=== PATIENT | male | born 1955 | race Caucasian/White ===

== ENCOUNTER 2016-09-03 05:06 | Inpatient (IN) | payer BC, OTHER ==
[2016-08-11 08:29] VITALS: BMI 29.0
--- NOTE | 2016-08-11 08:51 | PAT Medication Instructions ---
Service Date Aug 11, 2016. Current Home Medication List Aspirin (Aspirin 81), 81 MG PO QAM Metoprolol Tartrate (Lopressor) (Lopressor), 12.5 MG PO BID Naproxen (Aleve), 220 MG PO BID PRN for Pain Simvastatin (Zocor), 40 MG PO QPM Medication Instructions For Your Scheduled Surgery - Hold the following medications 10 days prior to surgery per surgeon's instructions: Naproxen (Aleve), 220 MG PO BID PRN for Pain - Take the following medications the morning of surgery with a sip of water OTHERWISE NOTHING TO EAT OR DRINK AFTER MIDNIGHT: Metoprolol Tartrate (Lopressor) (Lopressor), 12.5 MG PO BID Aspirin (Aspirin 81), 81 MG PO QAM - Take the following medications as scheduled the night before surgery: Simvastatin (Zocor), 40 MG PO QPM Metoprolol Tartrate (Lopressor) (Lopressor), 12.5 MG PO BID If you have any questions please call us at [phone] or [phone] or [phone]
--- NOTE | 2016-08-11 09:40 | DIAGNOSTIC IMAGING REPORT ---
CHEST PREADMISSION(PA/LAT) CLINICAL HISTORY: Preoperative evaluation. COMPARISON STUDY: Chest radiograph February 03, 2008. FINDINGS: Lung volumes are normal. No consolidation is identified to suggest pneumonia. There is no pneumothorax or pleural effusion. Mild interstitial thickening is unchanged. Mild to moderate cardiomegaly is unchanged. There is no evidence of pulmonary edema. IMPRESSION: 1. No acute cardiopulmonary findings. 2. Mild to moderate cardiomegaly. No evidence of pulmonary edema. Electronically signed by: Erorl Lebron M.D. 08/11/2016 9:39 AM Dictated Date/Time: 08/11/2016 9:38 AM
[2016-08-11 09:55] LABS: BASO % 0.5 %; BASO ABS # 0.03 K/uL (0-0.2); COMPLETE YES; EOS % 1.6 %; HEMATOCRIT 48.8 % (42-52); IG% 0.2 %; LYMPH % 28.2 %; LYMPH ABS # 1.59 K/uL (1.2-3.4); MEAN CELL VOLUME 97.6 fL (80-100); MEAN CORPUSCULAR HEMOGLOBIN 32.8 pg (25-34); MEAN CORPUSCULAR HGB CONC 33.6 g/dl (32-36); MEAN PLATELET VOLUME 10.2 fL (7.4-10.4); MONO % 9.9 %; NEUT % 59.6 %; PLATELET COUNT 255 K/uL (130-400); WHITE BLOOD COUNT 5.64 K/uL (4.8-10.8)
[2016-08-11 09:57] LABS: BUN/CREATININE RATIO 14.9 (10-20); CALCIUM 9.5 mg/dl (8.5-10.1); CREATININE 0.92 mg/dl (0.60-1.40); POTASSIUM 5.1 mmol/L (3.5-5.1)
[2016-08-11 10:10] LABS: PARTIAL THROMBOPLASTIN RATIO 0.9; PROTHROMBIN TIME (PATIENT) 10.2 SECONDS (9.0-12.0)
--- NOTE | 2016-08-29 18:58 | HISTORY & PHYSICAL EXAMINATION ---
DATE OF ADMISSION: 09/03/2016 CHIEF COMPLAINT: Left knee pain. HISTORY OF PRESENT ILLNESS: A 61-year-old gentleman who presents for surgical treatment of his left knee. He has had on and off knee pain for several years, it has gotten worse over the past 6 months. He describes pain mostly medial in his knee. It is increased with weightbearing. The more he stands the more it hurts. He was at [place] several months ago and had difficulty walking and was significantly debilitated by his pain. He does have a history of knee arthroscopy in this knee in the past, it was done about 30 years ago. He has also been treated with prednisone as well as Aleve which provides some temporary symptom relief, but not adequate. He would like to have his left knee replaced. PAST MEDICAL HISTORY: 1. Coronary artery disease, status post angioplasty at [facility] in [address] Jara. 2. Elevated cholesterol. PAST SURGICAL HISTORY: Include 1. Left knee arthroscopy 30 years ago. 2. Angioplasty in 1998 at [facility]. 3. Colonoscopy. ALLERGIES: None. CURRENT MEDICINES: Include: 1. Metoprolol half a pill twice a day. 2. Zocor 40 mg 3. Various anti-inflammatories intermittently. SOCIAL HISTORY: He is a 61-year-old male. He is , but and lives alone. Two children. He is from [place]. No tobacco or drug use. FAMILY HISTORY: Significant for heart disease, diabetes, breast cancer. REVIEW OF SYSTEMS: Negative for diabetes. Denies any current chest pain or shortness of breath. Does have a history of cardiac stent placed but no symptoms currently. He is followed by Dr. Jara. No bleeding problems. PHYSICAL EXAMINATION: GENERAL: Shows a fairly tall, pleasant, middle-aged male. He looks to be in pretty good health. HEENT: Benign. NECK: Supple. No lymphadenopathy. LUNGS: Clear to auscultation. HEART: Has a regular rate and rhythm. ABDOMEN: Soft, nontender, nondistended. EXTREMITIES: Grossly neurovascularly intact except as follows: Examination of the left lower extremity reveals the patient walks with a bit of a limp. He has got varus alignment to his knee. Little bit of a varus thrust with weightbearing. He has got bony hypertrophy medially. Range of motion is 5 to about 125. No instability. No pain on motion. X-RAYS: X-rays of the left knee were reviewed. It shows advanced medial compartment DJD. He has got complete loss of his medial joint space. He has got some chondrocalcinosis. He has got some patellofemoral disease as well. ASSESSMENT: A 61-year-old male with left knee advanced medial and patellofemoral compartment degenerative joint disease unresponsive to conservative treatment. He would like to have his left knee replaced. PLAN: We are going to take him to the operating room and do a left total knee replacement. The risks and benefits of this procedure were explained to the patient including but not limited to DVT, PE, , infection, neurological injury, vascular injury, bleeding problems, pain, limited range of motion, stiffness, failure to relieve his symptoms, incomplete relief of symptoms, need for further surgery in the future, fracture, persistent pain, etc. The patient understands and desires to proceed. Informed consent was obtained. We did talk to him about taking his metoprolol the morning of surgery. Dr. Jara will follow him in the hospital as needed. He is planning to be discharged home with the [facility] home health program. He does live by himself, so he might need some assistance from some family. BRETT
[~2016-09-03] VITALS: Ht 185.4 cm; Wt 101.2 kg
[2016-09-03] VITALS (11 sets, daily range): BP systolic 103–158; BP diastolic 55–88; PULSE 46–74; TEMP 36.4–36.8; O2SAT 97–100; Ht 185.4 cm; Wt 101.2 kg
[~2016-09-03 05:06] MED LIST: ASPI-435 PO; METO25TA56 PO; NAPR1TAB9 PO; SIMV40TA4 PO
[2016-09-03] MEDS ORDERED: SCOPOLAMINE 1.5 MG TDSY TD SCH (06:00)
[2016-09-03] MEDS ORDERED: BUPIVACAINE LIPOSOME 266 MG, BUPIVACAINE/EPINEPHRINE INJ 50 ML, SODIUM CHLORIDE 0.9% PF... INFIL SCH ×3 (06:00)
[2016-09-03] MEDS ORDERED: FAMOTIDINE 20 MG TAB PO SCH (06:00)
[2016-09-03] MEDS ORDERED: LACTATED RINGER'S 1000ML IV SCH (06:00)
[2016-09-03] MEDS ORDERED: METOCLOPRAMIDE HCL 10 MG TAB PO SCH (06:00)
[2016-09-03] MEDS ORDERED: LACTATED RINGER'S 1000ML 1,000 ML IV SCH (06:00)
[2016-09-03] MEDS ORDERED: GABAPENTIN 300 MG CAP PO SCH (06:00)
[2016-09-03] MEDS ORDERED: ACETAMINOPHEN 500 MG TAB PO SCH (06:00)
[2016-09-03] MEDS: TRANEXAMIC ACID INJ 1,000 MG in SODIUM CHLORIDE 0.9% 100ML 100 ML IV SCH ×2 (06:00→06:22)
[2016-09-03] MEDS ORDERED: CEFAZOLIN 2000 MG/60 ML D5W 60 ML IV SCH (06:00)
[2016-09-03] MEDS ORDERED: BUPIVACAINE/EPINEPHRINE 0.25% 1:200,000 30 ML VIAL ONE ×2 (06:21→06:49)
[2016-09-03] MEDS ORDERED: BUPIVACAINE 0.5 % 5 MG/1 ML PF 10ML VIAL ONE (06:21)
[2016-09-03] MEDS: LACTATED RINGER'S 500 ML IV SCH ×7 (06:22→15:05)
[2016-09-03] MEDS ORDERED: MIDAZOLAM HCL 1 MG/ML 2ML VIAL ONE (06:46)
[2016-09-03] MEDS ORDERED: SODIUM CHLORIDE 0.9% PF 50 ML VIAL ONE (06:49)
[2016-09-03] MEDS ORDERED: BACITRACIN 50000 UNIT VIAL ONE (06:49)
[2016-09-03] MEDS ORDERED: BUPIVACAINE LIPOSOME 1/3% 266 MG/20 ML VIAL INFIL ONE (06:49)
--- NOTE | 2016-09-03 07:00 | History & Physical Bridge Note ---
H&P Re-Evaluation Bridge Note: I have examined the patient, reviewed the History & Physical and in the interval since the performance of the History & Physical I have noted the following changes of clinical significance: No changes noted
[2016-09-03] MEDS ORDERED: PROPOFOL IV EMULSION 10 MG/ML 20 ML VIAL IV ONE (07:29)
[2016-09-03] MEDS ORDERED: LIDOCAINE HCL 2% 2 ML VIAL (20MG/ML) ONE (07:29)
[2016-09-03] MEDS ORDERED: MEPERIDINE HCL 25 MG/ML CARP IV PRN (07:45)
[2016-09-03] MEDS ORDERED: FENTANYL CITRATE INJ 50 MCG/1 ML 2 ML VIAL IV PRN (07:45)
[2016-09-03] MEDS ORDERED: FLUMAZENIL 0.1 MG/1 ML 10 ML VIAL IV PRN (07:45)
[2016-09-03] MEDS ORDERED: PHENYLEPHRINE 100MCG/ML 5ML SYR IV PRN (07:45)
[2016-09-03] MEDS ORDERED: ONDANSETRON INJ 2 MG/ML 2 ML VIAL IV PRN ×2 (07:45→09:00)
[2016-09-03] MEDS ORDERED: HYDROmorphone INJ 2 MG/ML SYR/VIAL IV PRN (07:45)
[2016-09-03] MEDS ORDERED: NALOXONE HCL 0.4 MG/1 ML VIAL/CARP IV PRN (07:45)
[2016-09-03] MEDS ORDERED: ATROPINE SULFATE 0.1 MG/ML 5ML SYR IV PRN (07:45)
[2016-09-03] MEDS ORDERED: EpHEDrine SULFATE INJ 50 MG/ML AMP IV PRN (07:45)
[2016-09-03] MEDS ORDERED: LABETALOL HCL IV 5 MG/ML 20ML IV PRN (07:45)
[2016-09-03] MEDS ORDERED: KETAMINE HCL INJ 50 MG/ML 10 ML VIAL ONE (08:16)
[2016-09-03] MEDS ORDERED: SODIUM CHLORIDE 0.9% INJ 10 ML VIAL ONE (08:19)
--- NOTE | 2016-09-03 08:49 | [facility] Post Operative Brief Note ---
Immediate Operative Summary Operative Date Sep 03, 2016. Pre-Operative Diagnosis Left Knee Degenerative Joint Disease Post-Operative Diagnosis same as pre-operative Procedure(s) Performed Left Total Knee Arthroplasty Surgeon Dr. Konstantin Fabian Hand Buffing Wheel Former Surgeon(s) Glenn Chu PA-C Estimated Blood Loss 50ml Findings Left Knee DJD Fluids (cc crystalloids) 1000 cc Specimens A: Left knee bone and tissue Drains None Anesthesia Spinal Complication(s) None Disposition Recovery Room / PACU
[2016-09-03] MEDS ORDERED: SILVER SULFADIAZINE 1% CR 50 GM JAR EXT PRN (09:00)
[2016-09-03] MEDS ORDERED: TAMSULOSIN HCL 0.4 MG CAP PO PRN (09:00)
[2016-09-03] MEDS ORDERED: MAGNESIUM HYDROXIDE SUSP 30 ML UDC PO PRN (09:00)
[2016-09-03] MEDS ORDERED: ALUMINUM/MAGNESIUM/SIMETH (MAALOX MAX) 30 ML UDC PO PRN (09:00)
[2016-09-03] MEDS ORDERED: ZOLPIDEM TARTRATE 5 MG TAB PO PRN (09:00)
[2016-09-03] MEDS ORDERED: DiphenhydrAMINE HCL 50 MG/ML VIAL IV PRN (09:00)
[2016-09-03] MEDS ORDERED: BISACODYL 10 MG SUPP PR PRN (09:00)
[2016-09-03] MEDS ORDERED: METOCLOPRAMIDE HCL INJ 5 MG/ML 2 ML VIAL IV PRN (09:00)
--- NOTE | 2016-09-03 09:22 | DIAGNOSTIC IMAGING REPORT ---
LEFT KNEE 2 VIEWS History: Left total knee arthroplasty. Degenerative arthritis. Postop. FINDINGS: The patient is status post a left total knee arthroplasty. The hardware is intact. No fracture or dislocation. Skin analia are in place. IMPRESSION: Left total knee arthroplasty. No evidence for hardware complication.. Electronically signed by: Reji Nettles M.D. 09/03/2016 9:21 AM Dictated Date/Time: 09/03/2016 9:21 AM
--- NOTE | 2016-09-03 09:41 | OPERATIVE REPORT ---
DATE OF OPERATION: 09/03/2016 PREOPERATIVE DIAGNOSIS: Left knee degenerative joint disease. POSTOPERATIVE DIAGNOSIS: Same. PROCEDURE PERFORMED: Left cemented posterior stabilized total knee arthroplasty. SURGEON: Konstantin Fabian M.D. PE TEACHER: Glenn Chu PA-C. COMPLICATIONS: None. ESTIMATED BLOOD LOSS: 50 mL. FLUID REPLACEMENT: 1000 mL crystalloid fluid replacement. ANESTHESIA: Spinal with adductor canal block. DRAINS: None. SPECIMENS: Left knee sent for pathology. OPERATIVE INDICATIONS: The patient is a 61-year-old gentleman who has had a fairly long history of left knee pain and discomfort. He describes it has gotten worse over the past 6 months. He has a history of a knee arthroscopy in the past about 30 years ago. He has been through extensive conservative treatment. He continued to have persistent and limiting pain. He elected to proceed with total knee arthroplasty. OPERATIVE FINDINGS: Operative findings revealed advanced left knee DJD. He had extensive grade 4 changes of the medial compartment as well as the patellofemoral compartment. He had some spotty grade 4 changes in the lateral compartment. He had a fixed varus deformity to his knee. Moderate joint effusion. OPERATIVE IMPLANTS: Operative implants consisted of: 1. Biomet Vanguard size 75 left posterior stabilized femoral component. 2. Biomet size 87 tibial tray. 3. A 10 mm posterior stabilized polyethylene insert. 4. A 34 x 8.5 all poly patella. OPERATIVE PROCEDURE: The patient taken to the operating room, identified and placed on the operating table in supine position. All contact areas were appropriately padded. IV antibiotics were provided by anesthesia team. A spinal anesthetic and adductor canal block had been provided in the holding area. Dey catheter was placed in sterile fashion. The left thigh tourniquet was then placed and left lower extremity was then prepped and draped in the usual sterile fashion. The left leg was elevated and exsanguinated with Esmarch and tourniquet was placed at 300 mmHg. An anterior approach to the left knee was then performed through a longitudinal incision centered over the patella. Sharp dissection was carried down through the subcutaneous tissues down to the level of the extensor mechanism. A medial parapatellar arthrotomy incision was made. Some subperiosteal dissection was carried out medially. The fat pad was resected from beneath the patellar tendon. The lateral patellofemoral ligament was released. The patella was everted and knee was flexed. The osteophytes were taken off the distal femur. The ACL and PCL were then released from the distal femur and the tibia subluxated anteriorly. The external tibial alignment jig was then placed in the anterior face of the tibia and adjusted 16 mm medially. Proximal tibial cut was made to remove about a millimeter or 2 of bone from the most deficient aspect of the medial tibial plateau. This did take a fairly large piece off laterally. The tibia was then sized to a size 87. Attention was then drawn to the femur. The distal femur was entered with a sharp drill bit. Intramedullary canal was suctioned. A left 6-degree valgus cutting guide was placed. Distal femoral cutting block was pinned in place. Distal femoral cut was made to take an additional 3 mm of bone off the distal femur. The femur was then sized to a size 75. We did downsize this slightly. The AP cutting block was pinned parallel to the epicondylar axis, which was 5 degrees of external rotation. The anterior cut, anterior chamfer, posterior cut, posterior chamfer cuts were made. Box cutting guide was placed and adjusted slightly lateral and the box cut was made. The knee was flexed. The remnants of the medial and lateral meniscus were excised. The osteophytes were taken off the posterior aspect of the femur. Trial femoral component was placed. Tibial tray was pinned in maximum external rotation and drill and stem punch were used to create defect in proximal tibia for the tibial tray. The knee was then trialed and the 10 mm insert fit most appropriately. I did trial the 12, but it was just a little bit tight, particularly in extension. Attention was then drawn to the patella. The patella was cleaned of all soft tissues. Patella thickness measured 25 mm in thickness and was cut down to 15. It was sized to a size 34 patella. Lug holes were drilled for a 34 patella. The lateral osteophyte was removed. Patella button was placed. Knee was taken through range of motion and patella tracked nicely with no thumbs test. Attention was then drawn toward placement of the permanent components. All trial components removed. Bone plug was placed in the distal femur to limit blood loss. A double batch of Palacos G cement was mixed. A left size 75 posterior stabilized femoral component, size 87 tibial tray, 10 mm posterior stabilized polyethylene insert, and a 34 x 8.5 all poly patella were then cemented in place. Knee was brought out into full extension until cement hardened. A final cement check was then performed. Pericapsular tissues were injected with a total of 100 mL of a combination of 20 mL of Exparel, 30 mL of normal saline, 50 mL of 0.25% Marcaine with epinephrine. The patient did receive 1 gram of tranexamic acid. The tourniquet was then let down for final tourniquet time of 61 minutes. Hemostasis was assured with use of electrocautery. The extensor mechanism was then closed with a combination of #1 PDS suture and #1 Vicryl suture in a [id number] fashion. Extensor mechanism was checked and found to be intact. Subcutaneous tissues were then closed with 2-0 Dexon suture in a buried interrupted fashion. Skin was closed skin analia. Leg was then cleaned and dried and a sterile dressing with Xeroform, 4 x 4, sterile cast padding and Armen bandage were applied. The patient was then transferred to the recovery room in stable condition. The patient tolerated the procedure well with no complications. All needle and sponge counts were correct at the end of the operation. I attest to the content of the Intraoperative Record and any orders documented therein. Any exceptio ns are noted below.
--- NOTE | 2016-09-03 10:32 | Anesthesiology Progress Note ---
Anesthesia Post Op Note Date & Time Sep 03, 2016 at 10:32 Vital Signs Pain Intensity: 0 Vital Signs Past 12 Hours Date Time Temp Pulse Resp B/P Pulse Ox O2 Delivery O2 Flow Rate FiO2 09/03/16 10:12 48 15 100 09/03/16 10:12 47 15 09/03/16 10:10 137/60 09/03/16 10:07 45 14 09/03/16 10:07 45 14 100 09/03/16 10:05 144/62 09/03/16 10:02 49 16 98 09/03/16 10:02 49 16 09/03/16 10:00 133/60 09/03/16 09:57 46 15 09/03/16 09:57 46 15 100 09/03/16 09:55 134/61 09/03/16 09:52 55 25 97 09/03/16 09:52 51 25 09/03/16 09:50 143/59 09/03/16 09:47 46 14 100 09/03/16 09:47 47 14 09/03/16 09:46 36.9 54 19 09/03/16 09:46 54 19 100 09/03/16 09:45 140/69 09/03/16 09:41 44 12 100 09/03/16 09:41 46 12 09/03/16 09:40 137/61 09/03/16 09:36 44 13 09/03/16 09:36 44 13 100 09/03/16 09:35 137/66 09/03/16 09:31 47 12 100 09/03/16 09:31 47 12 09/03/16 09:30 126/57 09/03/16 09:26 43 14 09/03/16 09:26 43 14 100 09/03/16 09:25 124/58 09/03/16 09:21 45 14 100 09/03/16 09:21 45 14 09/03/16 09:20 125/52 09/03/16 09:16 44 18 09/03/16 09:16 48 18 98 09/03/16 09:15 124/62 09/03/16 09:11 43 15 100 09/03/16 09:11 43 15 09/03/16 09:10 44 16 09/03/16 09:10 47 16 125/56 98 3/23/17 09:05 43 15 09/03/16 09:05 43 15 118/55 100 09/03/16 09:00 49 19 09/03/16 09:00 47 19 127/56 100 09/03/16 08:55 43 18 09/03/16 08:55 48 18 100 09/03/16 08:55 36.8 44 18 116/54 100 Mask 10 09/03/16 05:44 36.5 46 20 145/70 98 Room Air Notes Mental Status: alert / awake / arousable, participated in evaluation Pt Amnestic to Procedure: Yes Nausea / Vomiting: adequately controlled Pain: adequately controlled Airway Patency, RR, SpO2: stable & adequate BP & HR: stable & adequate Hydration State: stable & adequate Neuraxial Anesthesia: was administered, sensory block is resolving Anesthetic Complications: no major complications apparent
[2016-09-03] MEDS: TAPENTADOL ER 50 MG TABCR PO SCH ×2 (11:52→21:12)
[2016-09-03] MEDS: MULTIVITAMIN TAB PO SCH (11:52)
[2016-09-03] MEDS: D5W AND 1/2NSS + 20MEQ KCL 1,000 ML IV SCH ×3 (11:53→23:50)
[2016-09-03] MEDS: KETOROLAC TROMETHAMINE 30 MG/ML VIAL IV. SCH ×3 (11:53→23:51)
[2016-09-03] MEDS: FERROUS GLUCONATE 324 MG TAB PO SCH ×2 (12:37→17:59)
[2016-09-03] MEDS: ACETAMINOPHEN 500 MG TAB PO SCH ×2 (13:49→21:13)
[2016-09-03] MEDS ORDERED: TRANEXAMIC ACID INJ 1,000 MG in SODIUM CHLORIDE 0.9% 100ML 100 ML IV SCH (14:00)
--- NOTE | 2016-09-03 14:16 | PROGRESS NOTE ---
DATE: 09/03/2016 SUBJECTIVE: A 61-year-old gentleman postop from a left knee replacement. He is doing pretty well. Still cannot move his feet yet very well. He has no pain. No chest pain or shortness of breath. Not feeling dizzy or lightheaded. OBJECTIVE: VITAL SIGNS: Temperature is 36.5. Vital signs stable. He is bradycardic at 48. LUNGS: Clear to auscultation. HEART: Bradycardic, but regular rhythm. ABDOMEN: Soft, nontender, nondistended. EXTREMITIES: Grossly neurovascularly intact except as follows: Examination of both lower extremities reveals the leg to be well aligned. Dressing is clean, dry and intact in his left leg. He can just slightly flex his toes. He has got a good distal pulse. He has got brisk refill. No significant sensory function yet. X-RAYS: X-rays of the left knee from recovery room were reviewed. It shows a cemented posterior stabilized total knee arthroplasty. Components looked to be in good position. No signs of problems. ASSESSMENT: A 61-year-old gentleman postop from a left knee replacement, doing well. The spinal is still in effect. His pain is controlled. Nerve function is returning. PLAN: 1. DVT prophylaxis including thigh-high TEDs, SCDs, and aspirin twice a day. 2. PT/OT. Weightbearing as tolerated. Left total knee protocol. 3. IV antibiotics x 24 hours. 4. Pain control, doing well with current pain regimen. 5. Disposition: He is planning to be discharged to home with the [facility] home health program once medically stable.
[2016-09-03] MEDS: CEFAZOLIN IV 2,000 MG in DEXTROSE 5% 50ML 50 ML IV SCH ×2 (16:12→23:50)
[2016-09-03] MEDS: MoRPHine SULFATE 2 MG/ML CARP IV PRN (16:12)
[2016-09-03] MEDS: CHECK SCOPOLAMINE PATCH PLACEMENT SCH ×2 (16:13→23:51)
[2016-09-03] MEDS: ASPIRIN 325 MG ECTAB PO SCH (21:12)
[2016-09-03] MEDS: DOCUSATE SODIUM 100 MG CAP PO SCH (21:12)
[2016-09-03] MEDS: SIMVASTATIN 40 MG TAB PO SCH (21:12)
[2016-09-03] MEDS: METOPROLOL TARTRATE 25 MG TAB PO SCH (21:13)
[2016-09-04] VITALS (9 sets, daily range): BP systolic 91–171; BP diastolic 48–74; PULSE 48–62; TEMP 36.4–36.6; O2SAT 94–99
[2016-09-04] MEDS: KETOROLAC TROMETHAMINE 30 MG/ML VIAL IV. SCH ×3 (05:52→18:30)
[2016-09-04] MEDS: ACETAMINOPHEN 500 MG TAB PO SCH ×3 (05:52→21:15)
[2016-09-04] MEDS: D5W AND 1/2NSS + 20MEQ KCL 1,000 ML IV SCH (06:29)
[2016-09-04 06:48] LABS: HEMATOCRIT 37.1 % (42-52); MEAN CELL VOLUME 95.6 fL (80-100); MEAN CORPUSCULAR HEMOGLOBIN 32.2 pg (25-34); MEAN CORPUSCULAR HGB CONC 33.7 g/dl (32-36); PLATELET COUNT 176 K/uL (130-400); RED BLOOD COUNT 3.88 M/uL (4.7-6.1); WHITE BLOOD COUNT 5.89 K/uL (4.8-10.8)
[2016-09-04 07:13] LABS: BUN/CREATININE RATIO 9.4 (10-20); CALCIUM 8.2 mg/dl (8.5-10.1); CREATININE 0.88 mg/dl (0.60-1.40); POTASSIUM 4.5 mmol/L (3.5-5.1)
[2016-09-04] MEDS ORDERED: OXYC-57 PO (07:22)
[2016-09-04] MEDS ORDERED: MORP15TA19 PO (07:22)
[2016-09-04] MEDS ORDERED: ASPEC325 PO (07:22)
--- NOTE | 2016-09-04 07:23 | Discharge Instructions ---
Discharge Instructions Date of Service Sep 04, 2016. Admission Reason for Admission: Left Knee Pain, Degenerative Joint Disease Discharge Discharge Diagnosis / Problem: Left Knee Replacement Discharge Goals Goal(s): Decrease discomfort, Improve function, Increase independence, Improve disease control, Therapeutic intervention Activity Recommendations Activity Limitations: per Instructions/Follow-up section Weightbearing Status: Left weightbearing . Instructions / Follow-Up Instructions / Follow-Up ACTIVITY RECOMMENDATIONS: Physical Therapy: * You will go to physical therapy three times each week for four to six weeks after your surgery in order to regain your knee range of motion and to retrain your knee to work properly. * It is just as important to make sure you are getting your knee perfectly straight as it is to regain your knee bend. * Taking a pain pill an hour before therapy can help you have a more productive and comfortable therapy session. Home Exercise: * You were shown a series of exercises (heel props, heel slides, etc.) in the hospital. Do these exercises three to four times each day including the exercises you were shown in physical therapy. Walking: * Get up and walk several times each day. For the first four weeks, try not to stand or walk for more than one hour at a time. If you do stand or walk for more than one hour, you will not hurt anything, but your knee and leg will likely swell. * As you feel comfortable, you may change from the walker or crutches to a cane and then to independent walking. MEDICATIONS: New Medicine: * You will likely be taking one or more of these medications: 1. MS Contin - A long-acting pain medication. Take 1 tablet twice a day for the first ten days to decrease your baseline level of pain. 2. Percocet - A quick and shorter-acting pain medication. Take one to two tablets every four to six hours to lessen your pain. 3. Aspirin - Thins your blood to lessen the chance of forming a blood clot. * The most common side effects of pain medicine and iron are nausea and constipation. If nausea or constipation is too much of a problem or if you have any questions about your new medicines or doses, call [facility] at [phone]. We will try to help you manage these issues. VERY IMPORTANT TO READ AND REVIEW" Pain: * The immediate post-operative period after knee replacement surgery is often quite painful. * You are given a prescription for pain medicine. You should take it, as directed, when you need it, especially before physical therapy and before going to bed. Pain that interferes with sleep is very common and can last several months. * You will likely need pain medicine for the first four to six weeks. It will not stop all of the pain. The pain will lessen and as you feel better, you may change to milder pain medicine such as Tylenol. * The most common side effects of pain medicine are nausea and constipation, so don't take more than you need. SPECIAL CARE INSTRUCTIONS: TEDs/Elastic Stockings: * The white elastic stockings help limit swelling and prevent blood clots from forming in your legs. The more you wear them, the more they work. * Wear them for six weeks after knee replacement surgery and four weeks after partial knee replacement. Prevention of Infection: * Take antibiotics one hour before any dental cleaning, dental work, urological procedure, gastrointestinal procedure or any invasive surgery in order to prevent your new joint from getting infected. * You may get the antibiotics from the doctor performing the procedure or you may call our office at before and we will call in a prescription to the pharmacy of your choice. Things to Watch For: * Drainage from the incision site that occurs more than one week after your surgery. * Severely increased knee/leg pain or swelling. * Increased redness at the incision site. * Fever above 102 degrees Fahrenheit. * Unusual chest pain or shortness of breath. * Unusual pain or burning with urination. Call [facility] at with any of the above problems or if you have any questions about your medicines or recovery. FOLLOW UP VISIT: Make an appointment to see your doctor for approximately two weeks after surgery for a progress check and staple removal by calling the office at . Current Hospital Diet Patient's current hospital diet: Regular Diet Discharge Diet Recommended Diet: Regular Diet Procedures Procedures Performed: Left Total Knee Arthroplasty Pending Studies Studies pending at discharge: no Medical Emergencies . Who to Call and When: Medical Emergencies: If at any time you feel your situation is an emergency, please call [phone] immediately. . Non-Emergent Contact Non-Emergency issues call your: Surgeon . "Provider Documentation" section prepared by Konstantin Fabian. VTE Core Measure Inpt VTE Proph given/why not?: Other Anticoagulation, T.E.D. Stockings, SCD's
--- NOTE | 2016-09-04 07:37 | PROGRESS NOTE ---
DATE: 09/04/2016 DATE: 09/04/2016. SUBJECTIVE: A 61-year-old gentleman postop day 1 from a left knee replacement. He is doing well. His nerve function and foot function has come back. Pain is controlled. Denies any chest pain or shortness of breath. Not feeling dizzy or lightheaded. OBJECTIVE: VITAL SIGNS: Temperature 36.6. Vital signs stable. PHYSICAL EXAMINATION: GENERAL: Reveals a healthy, pleasant, middle-aged male. He is sitting up in bed, looks pretty comfortable. LUNGS: Clear to auscultation. HEART: Has a regular rate and rhythm. ABDOMEN: Soft, nontender, nondistended. EXTREMITY EXAMINATION: Grossly neurovascularly intact except as follows: Examination of the left lower extremity reveals the dressing to be in place. It is being reenforced but there is no further drainage. He can dorsiflex and plantarflex his foot appropriately. He is neurologically intact. LABORATORY DATA: Hemoglobin 12.5, hematocrit 37.1. Electrolytes are stable. ASSESSMENT: A 61-year-old gentleman postop day 1 from left knee replacement, doing well. His nerve function has returned. His pain is controlled. PLAN: 1. DVT prophylaxis including thigh-high TEDs, SCDs, and aspirin twice a day. 2. PT/OT. Weight bear as tolerated. Left total knee protocol. 3. Pain control. Doing pretty well with current pain regimen. 4. Disposition: We are going to discharge him to home with some home health once adequately recovered.
[2016-09-04] MEDS: METOPROLOL TARTRATE 25 MG TAB PO SCH ×2 (09:00→21:15)
[2016-09-04] MEDS: ASPIRIN 325 MG ECTAB PO SCH ×2 (09:18→21:15)
[2016-09-04] MEDS: CHECK SCOPOLAMINE PATCH PLACEMENT SCH ×2 (09:18→15:32)
[2016-09-04] MEDS: DOCUSATE SODIUM 100 MG CAP PO SCH ×2 (09:19→21:15)
[2016-09-04] MEDS: FERROUS GLUCONATE 324 MG TAB PO SCH ×4 (09:20→18:30)
[2016-09-04] MEDS: PANTOprazole SOD 40 MG TAB PO SCH (09:21)
[2016-09-04] MEDS: MULTIVITAMIN TAB PO SCH (09:21)
[2016-09-04] MEDS: TAPENTADOL ER 50 MG TABCR PO SCH ×2 (09:26→21:17)
[2016-09-04] MEDS: OXYCODONE HCL IR 5 MG TAB (IMMEDIATE RELEASE) PO PRN ×2 (09:28→10:46)
[2016-09-04] MEDS: MoRPHine SULFATE 2 MG/ML CARP IV PRN (12:11)
[2016-09-04] MEDS: SIMVASTATIN 40 MG TAB PO SCH (21:15)
[2016-09-05] MEDS: KETOROLAC TROMETHAMINE 30 MG/ML VIAL IV. SCH ×2 (00:05→05:20)
[2016-09-05] MEDS: CHECK SCOPOLAMINE PATCH PLACEMENT SCH (00:05)
[2016-09-05] MEDS: ACETAMINOPHEN 500 MG TAB PO SCH (05:20)
[2016-09-05 07:39] VITALS: BP 92/58; PULSE 53; TEMP 36.3; O2SAT 96
[2016-09-05 08:07] VITALS: O2SAT 96
--- NOTE | 2016-09-05 08:42 | PROGRESS NOTE ---
DATE: 09/05/2016 DATE: 09/05/2016. SUBJECTIVE: A 61-year-old gentleman postop day 2 from a left knee replacement. He is doing pretty well. Pain is controlled. He had a reasonable night. No chest pain or shortness of breath. OBJECTIVE: VITAL SIGNS: Temperature 36.3. Vital signs stable. PHYSICAL EXAMINATION: GENERAL: Reveals a healthy, pleasant, middle-aged male. He is sitting up in bed and reading a book when I visited him this morning. LUNGS: Clear to auscultation. HEART: Regular rate and rhythm. ABDOMEN: Soft, nontender, nondistended. EXTREMITY EXAMINATION: Grossly neurovascularly intact except as follows: Examination of the left lower extremity reveals the leg to be well aligned. His incision is clean, dry and intact. No significant drainage. Some moderate swelling. He can dorsiflex and plantarflex his foot appropriately. ASSESSMENT: A 61-year-old gentleman postop day 2 from a left knee replacement, doing pretty well. Pain is controlled. He is neurologically intact. PLAN: 1. DVT prophylaxis including thigh-high TEDs, SCDs, and aspirin twice a day. 2. PT/OT. Weightbearing as tolerated. Left total knee protocol. 3. Pain control. Doing pretty well with current pain regimen. 4. Disposition: Plan to discharge to home with some home health later today.
[2016-09-05] MEDS: DOCUSATE SODIUM 100 MG CAP PO SCH (08:58)
[2016-09-05] MEDS: ASPIRIN 325 MG ECTAB PO SCH (08:58)
[2016-09-05] MEDS: FERROUS GLUCONATE 324 MG TAB PO SCH (08:58)
[2016-09-05] MEDS: PANTOprazole SOD 40 MG TAB PO SCH (08:59)
[2016-09-05] MEDS: MULTIVITAMIN TAB PO SCH (08:59)
[2016-09-05] MEDS: METOPROLOL TARTRATE 25 MG TAB PO SCH (09:00)
[2016-09-05] MEDS: TAPENTADOL ER 50 MG TABCR PO SCH (09:05)
[2016-09-05] MEDS: OXYCODONE HCL IR 5 MG TAB (IMMEDIATE RELEASE) PO PRN (09:06)
[2016-09-05 09:08] VITALS: BP 118/59; PULSE 54
[2016-09-05 11:21] VITALS: BP 118/59; PULSE 54; TEMP 36.3; O2SAT 96
[2016-09-05 11:36] VITALS: BP 132/60; PULSE 52; TEMP 36.5; O2SAT 94
--- NOTE | 2016-09-14 18:20 | DISCHARGE SUMMARY ---
ADMITTING PHYSICIAN AND SURGEON: Dr. Fabian. ADMITTING DIAGNOSIS: Left knee degenerative joint disease. SURGERY PERFORMED: Left total knee arthroplasty. SECONDARY DIAGNOSES: Coronary artery disease and elevated cholesterol. CONSULTS: None obtained. HISTORY AND PHYSICAL EXAMINATION: Well documented in the patient's chart. HOSPITAL COURSE: The patient was admitted on 09/03/2016 and underwent total knee arthroplasty, tolerated the procedure well. There were no complications. He was transferred to the PACU postoperatively and later to the orthopedic floor for further care. He was given Ancef for antibiotic prophylaxis, MARIE stockings, SCDs and aspirin for DVT prophylaxis. Hemoglobin, hematocrit and vital signs were monitored during his hospital stay and remained stable, did not require any blood transfusions. By postoperative day #2, he was tolerating a general diet, pain was controlled with oral pain medicine. He was participating in physical therapy and no signs or symptoms of deep vein thrombosis. On postop day #2, he was discharged home in good condition, set up with home health services, given printed discharge instructions including prescriptions for aspirin 325 mg b.i.d., MS Contin and Percocet. Continue his home medications with the exception of his home dose of aspirin which was changed. Continue physical therapy, weightbearing as tolerated, MARIE stockings. Follow up in 10-12 days or sooner if there are problems or concerns.
== END 2016-09-05 11:44 | disposition home health service (06) | DRG 470 ==
LOC: ENRESERVDT → ENRESERVTM → C.ACU 05:06 → C.3E 06:20
PROVIDERS: ADMIT Orthopaedic Surgery Sports Medicine; ATTEND Orthopaedic Surgery Sports Medicine
PROC: 0SRD0J9 Replacement of Left Knee Joint with Synthetic Substitute, Cemented, Open Approach (ICD-10-PCS; principal; 2016-09-03 07:15)
DX: M17.12 Unilateral primary osteoarthritis, left knee (principal); M21.062 Valgus deformity, not elsewhere classified, left knee; M25.462 Effusion, left knee; I10 Essential (primary) hypertension; E78.5 Hyperlipidemia, unspecified; E78.00 Pure hypercholesterolemia, unspecified; I25.10 Atherosclerotic heart disease of native coronary artery without angina pectoris; R00.1 Bradycardia, unspecified; I25.2 Old myocardial infarction; Z95.5 Presence of coronary angioplasty implant and graft; Z87.891 Personal history of nicotine dependence; Z79.82 Long term (current) use of aspirin; Z79.899 Other long term (current) drug therapy

== ENCOUNTER → 2016-10-21 | Outpatient (CLI) | payer BC, OTHER ==
[~2016-10-21] MED LIST changes: +ASPEC325 PO; -ASPI-435 PO
[2016-10-21 13:32] LABS: BASO % 0.4 %; BASO ABS # 0.02 K/uL (0-0.2); COMPLETE YES; EOS % 1.8 %; HEMATOCRIT 46.6 % (42-52); IG% 0.2 %; LYMPH % 26.5 %; MEAN CELL VOLUME 99.8 fL (80-100); MEAN CORPUSCULAR HEMOGLOBIN 31.5 pg (25-34); MEAN CORPUSCULAR HGB CONC 31.5 g/dl (32-36); MONO % 8.1 %; PLATELET COUNT 262 K/uL (130-400); RED BLOOD COUNT 4.67 M/uL (4.7-6.1); WHITE BLOOD COUNT 5.65 K/uL (4.8-10.8)
[2016-10-21 13:53] LABS: ESTIMATED AVERAGE GLUCOSE 108 mg/dl; HA1C FLAG Normal (Normal)
[2016-10-21 14:30] LABS: ALT/SGPT 26 U/L (12-78); AST/SGOT 19 U/L (15-37); BLOOD UREA NITROGEN 17 mg/dl (7-18); BUN/CREATININE RATIO 18.3 (10-20); CALCIUM 9.1 mg/dl (8.5-10.1); CARBON DIOXIDE 30 mmol/L (21-32); CHLORIDE 105 mmol/L (98-107); CREATININE 0.92 mg/dl (0.60-1.40); GLUCOSE 105 mg/dl (70-99); POTASSIUM 4.6 mmol/L (3.5-5.1); SODIUM 140 mmol/L (136-145)
[2016-10-21 14:42] LABS: ALB/GLOB RATIO 1.2 (0.9-2); ALKALINE PHOSPHATASE 91 U/L (45-117); CHOLESTEROL 135 mg/dl (0-200); CHOLESTEROL/HDL RATIO 2.3; HDL CHOLESTEROL 60 mg/dl; THYROID STIMULATING HORMONE 0.873 uIu/ml (0.300-4.500); TRIGLYCERIDES 106 mg/dl (0-150); VERY LOW DENSITY LIPOPROT CALC 21 mg/dl
== END | disposition home or self-care (01) ==
LOC: C.LABSPEC 12:28
PROVIDERS: ATTEND Internal Medicine
DX: I25.10 Atherosclerotic heart disease of native coronary artery without angina pectoris (principal); E78.5 Hyperlipidemia, unspecified; R73.9 Hyperglycemia, unspecified; R53.83 Other fatigue; R37 Sexual dysfunction, unspecified

== ENCOUNTER → 2017-04-21 | Outpatient (CLI) | payer BC, OTHER ==
[2017-04-21 13:12] LABS: ESTIMATED AVERAGE GLUCOSE 120 mg/dl; HA1C FLAG Normal (Normal)
[2017-04-21 13:31] LABS: BLOOD UREA NITROGEN 20 mg/dl (7-18); BUN/CREATININE RATIO 19.9 (10-20); CARBON DIOXIDE 27 mmol/L (21-32); CHLORIDE 106 mmol/L (98-107); CHOLESTEROL 164 mg/dl (0-200); CREATININE 0.99 mg/dl (0.60-1.40); GLUCOSE 114 mg/dl (70-99); POTASSIUM 4.7 mmol/L (3.5-5.1); SODIUM 140 mmol/L (136-145); TRIGLYCERIDES 93 mg/dl (0-150); VERY LOW DENSITY LIPOPROT CALC 19 mg/dl
[2017-04-21 13:34] LABS: HDL CHOLESTEROL 55 mg/dl
== END | disposition home or self-care (01) ==
LOC: C.LABSPEC 12:17
PROVIDERS: ATTEND Internal Medicine
DX: I25.10 Atherosclerotic heart disease of native coronary artery without angina pectoris (principal); E78.5 Hyperlipidemia, unspecified; R73.9 Hyperglycemia, unspecified

== ENCOUNTER → 2017-10-20 | Outpatient (CLI) | payer OTHER ==
[2017-10-20 13:22] LABS: ALBUMIN 3.7 gm/dl (3.4-5.0); ALT/SGPT 26 U/L (12-78); AST/SGOT 23 U/L (15-37); BLOOD UREA NITROGEN 13 mg/dl (7-18); CALCIUM 8.8 mg/dl (8.5-10.1); CARBON DIOXIDE 28 mmol/L (21-32); CHOLESTEROL 136 mg/dl (0-200); CREATININE 1.03 mg/dl (0.60-1.40); GLUCOSE 107 mg/dl (70-99); POTASSIUM 4.7 mmol/L (3.5-5.1); SODIUM 138 mmol/L (136-145)
[2017-10-20 13:24] LABS: ALKALINE PHOSPHATASE 107 U/L (45-117); LDL CHOLESTEROL (DIRECT) 82 mg/dl; TOTAL PROTEIN 7.6 gm/dl (6.4-8.2)
[2017-10-20 13:31] LABS: HEMOGLOBIN A1C 5.9 % (4.5-5.6)
== END | disposition home or self-care (01) ==
LOC: C.LABSPEC 12:21
PROVIDERS: ATTEND Internal Medicine
DX: I25.10 Atherosclerotic heart disease of native coronary artery without angina pectoris (principal); I10 Essential (primary) hypertension; E78.5 Hyperlipidemia, unspecified; R73.9 Hyperglycemia, unspecified

== ENCOUNTER 2022-12-24 08:14 | Observation (INO) ==
[2022-12-24] MEDS ORDERED: niCARdipine HCL INJ 2.5 MG/ML 10 ML AMP ONE (08:46)
[2022-12-24] MEDS ORDERED: HEPARIN (PORCINE) 1000 UNIT/ML 10 ML (CATH LAB USE ONLY) ONE (08:46)
[2022-12-24] MEDS ORDERED: fentaNYL citrate PF 100 MCG/2 ML VIAL ONE (08:47)
[2022-12-24] MEDS ORDERED: MIDAZOLAM HCL 1 MG/ML 2ML VIAL ONE (08:47)
[2022-12-24] MEDS ORDERED: NITROGLYCERIN/D5W 100MCG/ML 20ML SYR ONE (08:48)
[2022-12-24] MEDS ORDERED: ASPIRIN 81 MG CHEW ONE (08:51)
--- NOTE | 2022-12-24 09:00 | Pre Anesthesia Assessment ---
Date of Service December 24, 2022 Pre Sedation Assessment Vital Signs Pulse Resp BP Pulse Ox O2 Del Method 12/24/22 08:26 54 L 18 176/66 H 96 Room Air Cardiovascular RRR, no murmur, no edema Respiratory normal respiratory effort, lungs clear to auscultation Pre-Sedation Airway Assessment Smoking Status: Former smoker Hx Sleep Apnea: No Short, Thick Neck: No Thyromental Distance: > or= 3.5 Finger Breadths Oral Cavity: + WNL Mallampati Class: II ASA: ASA3 NPO Status Date of Last Intake of Fluids: 12/23/22 Time of Last Intake of Fluids: 22:00 Date of Last Intake of Solid Food: 12/23/22 Time of Last Intake of Solid Foods: 19:00 Notes The planned sedation has been discussed with the patient. Informed Consent was obtained. I have identified the patient, determined the appropriateness of sedation and have assessed the patient immediately prior to the procedure. All medicine(s) and interventions are by my order.
--- NOTE | 2022-12-24 09:01 | History & Physical Bridge Note ---
Date of Service December 24, 2022 History & Physical Bridge Note I have examined the patient, reviewed the History & Physical and in the interval since the performance of the History & Physical I have noted the following changes of clinical significance: no changes noted Patient with new cardiomyopathy. evaluate for CAD as cause. No change from recent office visit. also awaiting defibrillator vest. Proceed with cath
[2022-12-24] MEDS ORDERED: TICAGRELOR 90 MG TAB ONE (09:35)
--- NOTE | 2022-12-24 10:18 | Post Anesthesia Assessment ---
Date of Service December 24, 2022 Post Sedation Assessment Vital Signs Pulse Resp BP Pulse Ox O2 Del Method 12/24/22 10:00 62 18 114/78 95 Room Air 12/24/22 08:26 54 L 18 176/66 H 96 Room Air Recovery Score Activity: Moves 4 extremities Respiration: Deep Breath/Cough Circulation: +/-20% PreAnes Value Consciousness: Fully Awake Oxygen Saturation: > 92% On Room Air Post Anesthesia Score: 10 Discharge Sedation Level of Care: Fast Track Phase II Post Sedation Plan On clinical assessment, the patient appears to have tolerated the sedation without complications. Patient is recovering as anticipated. Patient will continue to be monitored by nursing and may be discharged when sedation discharge criteria are met per below protocol. Upon Completions of procedure up to 15 minutes continue every 5 minute vital signs and the P.A.R. score; then discharge to a Phase I or Fast Track to Phase II per the following guidelines: * Discharge Patient to appropriate Phase II area if PAR is 8 or greater or return to pre- procedure baseline. The post - procedure orders will be as directed. * If PAR score is less than 8 or not return to pre-procedure baseline then patient will follow Phase I monitoring till PAR is reached for Phase II. The Phase I may be done in procedure room or may call to secure a Phase I area. * If naloxone or flumazenil are used for reversal, hold in Phase I for continued monitoring from when last reversal dose was given for a minimum of 60 minutes or longer pending the nurse and/or physician discretion of patient condition before discharge to Phase II. Please call the Sedation Physician to re-evaluate and complete post-note for discharge to Phase II area. Do NOT discharge from procedure sedation or Phase 1 until post- sedation evaluation note is complete by procedure /sedation MD Sedation Discharge Instructions to be given to the patient at discharge to home. [facility] Procedure Codes (Charges) Indication for Procedure Indication for procedure: cardiomyopathy arrhythmia RAMSEY Sedation/Anesthesia Procedure 1: Sedation/Anesthesia: 82721 Mod Sedation by the same physician;Init15 Min Child Age 5 & Up (Initial 15 min, start 09) Total Sedation Time (minutes): 32 Procedure 2: Sedation/Anesthesia: 31875 Mod Sedation by the same physician; Ea [id number] Minutes (Additional 17 min, end time 0952) Total Sedation Time (minutes): 32
--- NOTE | 2022-12-24 10:47 | Cardiac Catheterization ---
ACC Data: Clay Molder Cardiac Status Clinical evaluation leading to the procedure CAD Presenation: Stable angina Anginal Classification: CCS III Heart Failure: Yes Cardiogenic Shock within 24 Hours: No Cardiac Arrest within 24 Hours: No Imaging Studies Past 6 Months: Yes Stress Studies Past 6 Months: No Coronary Anatomy Dominant: Right Left Main (% Stenosis): Normal LAD (% Stenosis): Proximal (Mild) and Mid (Mild) D1 (% Stenosis): Normal D2 (% Stenosis): Normal Circumflex (% Stenosis): Normal OM1 (% Stenosis): Proximal (Mild diffuse and 99% focal) RCA (% Stenosis): Proximal (Diffuse mild less than 40%), Mid (Diffuse mild) and Distal (Scattered mild) R PDA (% Stenosis): Normal R PL1 (% Stenosis): Normal Left Ventricular Angiography EF (%): 30 to 35% Wall Motion: Anterior (Hypokinetic) and Apical (Hypokinetic) Mitral Regurgitation: 1+ Diagnostic Physicians Name: Konstantin Franklin MD, PhD Closure Device Percutaneous Entry Location: Radial Closure Device: Radial Band Recommendations: Medical Therapy and/or Counseling and PCI without planned CABG PCI Indication: Angina despite med therapy Lesion Segment Name: Proximal OM1 Culprit Artery: Yes Stenosis Prior to Rx (%): 99% Chronic Total Occlusion: No Pre-Procedure NICKI Flow: 3 Previously Treated Lesion: No Lesion Complexity: Non-High/Non-C Lesion Length (mm): 8 Thrombus Present: No Bifurcation Lesion: No Guidewire Across Lesion: Yes Intraprocedure Events Significant Disection: No Perforation: No Cardiac Cath Procedure Full Procedure Date December 24, 2022 Pre-Procedure Diagnosis Pre-Procedure Diagnosis: CAD and Cardiomyopathy AUC Score AUC Score: 07 Post-Procedure Diagnosis Post-Procedure Diagnosis: Severe CAD Procedure(s) Performed Procedure(s) Performed: Coronary Angiography, Left Heart Cath, LV Angiography and Drug Eluting Stent Sap Mobility Architect Konstantin Franklin MD, PhD Estimated Blood Loss Estimated Blood Loss: 5 mL Medication(s) Medication(s): Fentanyl, Heparin, Lidocaine 1%, Nicardipine, Nitroglycerin and Versed Summary of Findings Brief description: Patient was brought to the cardiac catheterization suite where he was shaved and prepped in a sterile fashion. Sedated using IV Versed and fentanyl. Soft tissues of the right wrist were anesthetized using 2 mL of 1% Xylocaine. The right radial artery was accessed with a modified Seldinger technique and a 6 [place] radial artery glide sheath was placed. Patient was provided anticoagulation with IV heparin and antispasmodics including nicardipine and nitroglycerin. All catheters were advanced and exchanged over a 0.035 J-tip wire. Left coronary angiography in orthogonal views with a 5 [place] 4 diagnostic catheter. The right coronary angiography in orthogonal views with a 5 Scottish JR4 diagnostic catheter. Left heart cath and left ventriculogram were performed with a 5 [place] pigtail catheter. Diagnostic catheters were removed. Decision was made to proceed with PCI of the obtuse marginal branch. ACT was checked and additional heparin was provided as needed to maintain therapeutic anticoagulation. A 6 [place] EBU 3.0 guide catheter was used to engage the left main coronary. A BMW universal guidewire was advanced through the catheter and beyond the lesion in the obtuse marginal. Predilatation of the lesion with a 2.0 x 12 mm mini trek balloon inflated to 14 bobby. Additional dilatation with a 2.5 x 12 mm trek balloon inflated to 14 bobby. [place] drug-eluting stent implantation with a 2.5 x 15 mm stent at 15 bobby. Removal of stent balloon and coronary guidewire. Final angiographic evaluation performed in orthogonal views. Removal of guide catheter. Radial artery sheath was removed. Hemostasis was obtained using the TR band. Patient received 180 mg of p.o. Brilinta. Patient was hemodynamically stable and asymptomatic. He was returned to the recovery area. This ended the case. Coronary angiography findings: BSB-[id number] vessel bifurcating into LAD and circumflex. Mild calci fication and mild luminal irregularities. LAD-large caliber and transapical. Mild calcification throughout the proximal, mid, and early distal vessel. First major branch is a large septal followed by a medium caliber branching first diagonal. Proximal segment has diffuse mild less than 20% stenosis. Mid LAD with mild luminal irregularities and then provides a large caliber branching second diagonal. The early distal LAD has mild luminal irregularities and provides a second large septal branch. The remainder of the LAD and its branches have no angiographically evident disease. LCx-this is large caliber and nondominant. Travels in the AV groove where it gives a high, large caliber multi branching OM1. Proximal diffuse mild disease and then a focal 99% stenosis. The mid and distal OM have mild luminal irregularities. The AV groove vessel becomes medium in caliber in the midsegment and then terminates distally in the AV groove. No significant disease. RCA-this is a large caliber and dominant vessel which bifurcates distally into a large and long PDA as well as a large and multi branching posterolateral. Proximal RCA with mild to moderate calcification and diffuse mild disease up to 30 to 40% narrowing. Mid vessel has diffuse mild disease. Distal vessel with scattered mild plaques of up to 20%. PDA without disease. Posterolateral branch without significant disease. Left ventriculogram LVEF: 30 to 35% 1-2+ MR Moderate anterior and apical hypokinesis. PCI of OM1: 99% stenosis is reduced to 0% stenosis post PCI No evidence of dissection or perforation post PCI NICKI-3 flow post PCI Summary: 1. Severe occlusive coronary disease isolated to the proximal OM1. 2. Successful PCI with implantation of a drug-eluting stent to the OM1. 3. Mild calcific nonocclusive disease elsewhere as described. 4. Moderately to severely reduced EF by this method. Elevated left ventricular filling pressure. 5. Dual antiplatelet therapy with aspirin and Brilinta. 6. Guideline directed medical therapy for secondary prevention of coronary disease to include; low-dose aspirin, high intensity statin therapy, beta- neri, and ARB. 7. We will choose heart failure indicated medications, continue diuretic, have a defibrillator vest placed, and add adjuvant medical therapy for chronic systolic heart failure. Hemodynamics Rest Ao:: 150/58 mmHg Final Ao: 152/62 mmHg LV: 184 over 15 mmHg, LVEDP 26 mmHg Recommendations Recommendations: Medical Therapy and/or Counseling and PCI without planned CABG Radiation Exposure (mGy) 1992 mGy, fluoroscopy time 7.7 minutes Contrast (mls) 140 mL Anesthesia 2 mg IV Versed, 50 mcg IV fentanyl Procedural Complication(s) None Disposition Recovery Room\PACU I attest to the content of the Intraoperative Record and any orders documented therein. Any exceptions are noted below. idio Card Cath Procedure Codes Cardiac Catheterization Procedure 1: Cardiovascular Cath Procedures: 98423 Coronaries and LHC (+/-LV) Moderate Sedation Procedure 1: Sedation/Anesthesia: 41708 Mod Sedation by the same physician;Init15 Min Child Age 5 & Up (Initial 15-minute, start 0920) Procedure 2: Sedation/Anesthesia: 82948 Mod Sedation by the same physician; Ea [id number] Minutes (Additional 17 min, end time 951) Stenting Procedure 1: Cardiovascular Stent Procedures: 88516 Perc transcatheter placement of intracoronary stent(s), with ang (LCx/OM) PG Care Time/CCT Total # of Minutes Spent Total Time Spent with Patient: Total time spent is greater than 50% in coordination of care (as documented) at patient's floor/unit and/or counseling patient:
--- NOTE | 2022-12-24 16:20 | Electrocardiogram Report ---
Test Reason : Blood Pressure : / mmHG Vent. Rate : 054 BPM Atrial Rate : 054 BPM P-R Int : 192 ms QRS Dur : 132 ms QT Int : 456 ms P-R-T Axes : 000 -29 150 degrees QTc Int : 432 ms Sinus bradycardia with marked sinus arrhythmia Right bundle branch block Left ventricular hypertrophy with repolarization abnormality Abnormal ECG When compared with ECG of 11-AUG-2016 09:09, Right bundle branch block is now Present Confirmed by Naren Pittman ([id number]) on 12/24/2022 4:19:44 PM Referred By: Konstantin Franklin Confirmed By:Jake Pittman
--- NOTE | 2022-12-24 16:46 | Hospitalist Consultation ---
Date of Consultation December 24, 2022 Assessment & Plan (1) Status post cardiac catheterization: Management per primary cardiology team (2) Ischemic cardiomyopathy: Metoprolol succinate + Entresto (3) Acute HFrEF (heart failure with reduced ejection fraction): Diuretics not continued - will defer restarting Furosemide to primary cardiology team, Jardiance should also help with diuresis but given elevated LV filling pressures on cath suspect he will need to continue on diuretics in addition. (4) Benign essential hypertension: Main use of medications above is not for HTN, will have to monitor for hypotension (5) Crohn's disease: Stable/chronic Continue mesalamine Continue Adalimumab as outpatient (6) Hyperlipidemia: Simvastatin switched to atorvastatin per primary cardiac team (7) Coronary artery disease: ASA, Brillinta, Metoprolol, Entresto, Atorvastatin Plan Disposition per primary cardiology team History of Present Illness Reason for Consultation: Medical Management Attending Physician: Konstantin Franklin MD, PhD History of Present Illness Pawel Franco is a 67 year old male admitted under cardiology status post cardiac catheterization performed electively for presumed new onset ischemic cardiomyopathy with acute HFrEF. Cardiac catheterization showed severe occlusive coronary disease isolated to the proximal OM1 with successful PCI and implantation of drug-eluting stent to the OM1. He reports feeling well s/p cardiac catheterization. He notes recent improvement from furosemide use although legs still swollen and still with shortness of breath on exertion. No orthopnea, PND, palpitations or claudication. No chest pain. Allergies Allergy/AdvReac Type Severity Reaction Status Date / Time No Known Allergies Allergy Unknown Verified 12/18/22 14:49 Home Medications Medication Instructions Recorded Confirmed Type mesalamine 1.2 gram tablet,delayed 2 tab PO BID 07/08/22 12/24/22 History release nitroglycerin 0.4 mg sublingual 0.4 mg sublingual Q5M PRN chest 07/08/22 12/24/22 History tablet pain aspirin 81 mg tablet,delayed 81 mg PO DAILY 08/06/22 12/24/22 History release (Adult Low Dose Aspirin) ferrous fumarate 325 mg (106 mg 325 mg PO DAILY 08/06/22 12/24/22 History iron) tablet naproxen sodium 220 mg tablet 220 mg PO BID PRN Muscle Pain 08/06/22 12/24/22 History sildenafil 50 mg tablet 50 mg PO DAILY PRN sexual activity 08/06/22 12/24/22 Rx #30 tabs simvastatin 40 mg tablet 40 mg PO DAILY #90 tabs 08/06/22 12/24/22 Rx triamcinolone acetonide 0.1 % 1 applic topical DAILY #80 grams 08/06/22 12/24/22 Rx topical cream adalimumab 40 mg/0.8 mL 40 mg subcut Q14D 10/14/22 12/24/22 History subcutaneous pen kit (Humira Pen Vlusexplu-Vrrdqba-Ipns Hid Sup Start) metoprolol tartrate 50 mg tablet 25 mg PO BID #90 tabs 10/26/22 12/24/22 Rx furosemide 20 mg tablet 20 mg PO DAILY #30 tabs 12/08/22 12/24/22 Rx sacubitril 24 mg-valsartan 26 mg 1 tab PO BID #60 tabs 12/08/22 12/24/22 Rx tablet (Entresto) terbinafine HCl 250 mg tablet 250 mg PO DAILY 12/08/22 12/24/22 History Patient History Medical History Crohn's disease History of [place] (myocardial infarction) Hyperlipidemia Left knee DJD Family History Mother Breast cancer Colorectal cancer Myocardial infarction Stroke Father Diabetes Myocardial infarction Denies family history of Ovarian cancer Prostate cancer Lung cancer Hypertension Social History Smoking Status: Former smoker Tobacco Type: E-cigarettes / Vaping Second Hand Exposure: No; Do You Dip or Chew Tobacco: No; Hx Alcohol Use: Yes Alcohol type: hard liquor Alcohol Intake Frequency: 4 or More x per/Week Hx Substance Use: No Preferred Language: [place] Communication Ability: Effective Visual Impairment: No Limitations Hearing Ability: Normal Hose Operator Required: No Beliefs That Will Affect Care: None marital status: Current Living Situation: Alone current occupational status: retired How many Children do You have: 2 Other Information That Helps Us Care for You: No Feels Safe at Home: Yes Safety Concerns: Feels Safe At This Time Childhood Exposure to Second-Hand Smoke: No Diet: regular caffeine: Yes (coffee) Dental Care, Regularly: No Physical Activity Frequency: 3-4 Times per Week Seatbelt Use: always Sunscreen Use: Yes Review of Systems Review of Systems: All systems reviewed & are unremarkable except as noted in HPI & below Physical Exam Constitutional: WD/WN, vitals as above ENMT: external ear and nose normal, oropharynx normal Respiratory: normal respiratory effort; no respiratory distress Auscultation: + crackles (bibasal); breath sounds present, no diminished lung sounds, no rales, no rhonchi and no wheezes Cardiovascular: Rate/Rhythm: regular rate and regular rhythm Heart Sounds: no murmur Vessels: no JVD Extremities: normal capillary refill and + pedal edema (1+ pitting b/l equal); no calf tenderness Gastrointestinal (Abdomen): normal bowel sounds, soft, nontender, no hepatosplenomegaly Musculoskeletal: no cyanosis or clubbing, extremities motor strength 5/5 Skin: no rashes, warm and dry Neurologic: moves all extremities and awake; not confused Psychiatric: A+Ox3, euthymic affect Results & Data Results & Data Vital Signs (Past 12 Hours) Vital Signs Temp Pulse Resp BP Pulse Ox O2 Del Method 12/24/22 15:15 36.3 C L 51 L 18 101/66 97 Room Air 12/24/22 12:25 36.8 C 57 L 16 120/70 98 Room Air 12/24/22 11:45 55 L 18 116/73 97 Room Air 12/24/22 11:30 56 L 18 117/68 97 Room Air 12/24/22 11:15 55 L 18 115/73 97 Room Air 12/24/22 11:00 53 L 18 116/78 97 Room Air 12/24/22 10:45 51 L 18 100/68 97 Room Air 12/24/22 10:30 59 L 18 118/82 97 Room Air 12/24/22 10:15 55 L 18 112/75 97 Room Air 12/24/22 10:00 62 18 114/78 95 Room Air 12/24/22 08:26 54 L 18 176/66 H 96 Room Air Laboratory Results Abnormal lab results 12/24/22 Range/Units 09:44 Activ Coag Time Kaolin 372 H (94-140) SECONDS PG Care Time/CCT Total # of Minutes Spent Total Time Spent with Patient: Total time spent is greater than 50% in coordination of care (as documented) at patient's floor/unit and/or counseling patient: Coding Level of Care Code 62139 IN/OBS CONSULT LVL 3,45M Diagnoses Status post cardiac catheterization Z98.890 Ischemic cardiomyopathy I25.5 Acute HFrEF (heart failure with reduced ejection fraction) I50.21 Benign essential hypertension I10 Crohn's disease K50.90 Hyperlipidemia E78.5 Coronary artery disease I25.10
[2022-12-24 18:03] LABS: Basophils # (auto) 0.05 K/uL (0-0.2); Basophils % (auto) 0.8 %; Eosinophils # (auto) 0.34 K/uL (0-0.50); Eosinophils % (auto) 5.6 %; Immature Granulocytes # (auto) 0.02 K/uL (0.01-0.20); Immature Granulocytes % (auto) 0.3 %; Lymphocytes % (auto) 21.3 %; Mean Corpuscular Hgb Conc 33.3 g/dL (32.0-36.0); Mean Platelet Volume 11.1 fL (9.4-12.4); Monocytes # (auto) 0.64 K/uL (0.11-0.59); Monocytes % (auto) 10.5 %; Neutrophils # (auto) 3.75 K/uL (1.40-6.50); Neutrophils % (auto) 61.5 %; Platelet Count 219 K/uL (130-400); RDW Coefficient of Variation 14.7 % (11.5-14.5); RDW Standard Deviation 51.2 fL (36.4-46.3); Red Blood Count 4.84 M/uL (4.70-6.10)
[2022-12-24 18:21] LABS: Albumin Globulin Ratio 1.2 (0.9-2); Albumin Level 3.7 gm/dl (3.4-5.0); BUN Creatinine Ratio 16.9 (10-20); Bilirubin,Total 0.5 mg/dl (0.2-1.0); Calcium 9.1 mg/dl (8.6-10.3); Creatinine Clr Calc Pharmacy 100.5 ml/min; Est GFR (African American) 101.1 ml/min; Est GFR (Non-African American) 87.2 ml/min; Globulin 3.2 gm/dl (2.5-4.0); Potassium 4.6 mmol/L (3.5-5.1); Total Protein 6.9 gm/dl (6.0-8.3)
[2022-12-24] MEDS: MESALAMINE 800 MG TABCR PO SCH (20:43)
[2022-12-24] MEDS: VALSARTAN/SACUBITRIL 26/24MG TAB PO SCH (20:44)
[2022-12-24] MEDS: TICAGRELOR 90 MG TAB PO SCH (20:45)
[2022-12-25 06:32] LABS: Basophils # (auto) 0.04 K/uL (0-0.2); Basophils % (auto) 0.8 %; Eosinophils # (auto) 0.32 K/uL (0-0.50); Eosinophils % (auto) 6.4 %; Hemoglobin 16.1 g/dl (14.0-18.0); Immature Granulocytes # (auto) 0.01 K/uL (0.01-0.20); Immature Granulocytes % (auto) 0.2 %; Lymphocytes # (auto) 1.21 K/uL (1.2-3.4); Lymphocytes % (auto) 24.2 %; Mean Corpuscular Hemoglobin 30.8 pg (25.0-34.0); Mean Corpuscular Hgb Conc 34.3 g/dL (32.0-36.0); Mean Corpuscular Volume 89.9 fL (80.0-100.0); Mean Platelet Volume 10.7 fL (9.4-12.4); Neutrophils # (auto) 2.91 K/uL (1.40-6.50); Neutrophils % (auto) 58.4 %; Platelet Count 208 K/uL (130-400); RDW Coefficient of Variation 14.5 % (11.5-14.5); RDW Standard Deviation 47.9 fL (36.4-46.3); Red Blood Count 5.23 M/uL (4.70-6.10); White Blood Count 4.99 K/ul (4.8-10.8)
[2022-12-25 06:45] LABS: BUN Creatinine Ratio 17.6 (10-20); Creatinine Clr Calc Pharmacy 120.9 ml/min; Est GFR (African American) 109.1 ml/min; Est GFR (Non-African American) 94.1 ml/min; Potassium 3.9 mmol/L (3.5-5.1)
--- NOTE | 2022-12-25 07:46 | Hospitalist Progress Note ---
Date of Service December 25, 2022 Assessment & Plan (1) Status post cardiac catheterization: Plan: Management per primary cardiology team encouraged tobacco cessation - reports vaping Cards ordered metoprolol succinate 50mg daily (was on tartrate 25mg BID) - will need new rx To be on Brillinta BID/ASA 81mg post-cath. Message to Dr Franklin to see if needing any assistance w/ [facility] checking/CM/sending medications and will assist in sending if needed. Also Patient reports no CP. LE edema baseline, lasix to be resumed possibly once seen by Snowden. Kidney function stable on morning labs (2) Ischemic cardiomyopathy: Plan: Metoprolol succinate + Entresto further management per cards, f/u at discharge (3) Acute HFrEF (heart failure with reduced ejection fraction): Plan: acute drop in EF to 25-30% on recent echo, prompting cath as above for eval. no s/p PCI to [facility]. Management per cards above Diuretics not continued post-cath - will defer restarting Furosemide to primary cardiology team who has not yet seen this morning and will decide on giving dose today Jardiance should also help with diuresis but given elevated LV filling pressures on cath suspect he will need to continue on diuretics in addition. Will need rx for Jardiance (a1c 6.4) F/u DM management w/ PCP. Monitor weights at home, low salt diet encouraged CHF clinic referral at discharge (4) Benign essential hypertension: Plan: Main use of medications above is not for HTN, will have to monitor for hypotension Cardiology ordered metoprolol succinate 50mg daily (taking tartrate 25mg BID at home) - will need new rx at dc w/ cardiology (5) Crohn's disease: Plan: Stable/chronic Continue mesalamine Continue Adalimumab as outpatient (6) Hyperlipidemia: Plan: Simvastatin switched to atorvastatin per primary cardiac team (7) Coronary artery disease: Plan: ASA, Brillinta, Metoprolol, Entresto, Atorvastatin Plan Disposition per primary cardiology team -- Dr Franklin to see and discharge patient later today Patient to be discharged on ASA/Brillinta, metorpolol switched to succinate, new rx for Jardiance, switched simvastatin to atorvastatin 40mg and continue on entresto, life vest Admission and Anticipated Discharge Date Admission Date: December 24, 2022 Supervising Physician Co-Signing Physician Notes The patient was not seen by me. The chart was reviewed. Case discussed with SIVAN Gilbert. Agree with assessment and plan Subjective eval this morning, doing well. No fever/chills, chest pain/shortness of breath at present. Resting in bed. Not yet seen by cardiology but planning for discharge this afternoon once seen. He is on metoprolol tartrate at home and discussed given succinate this morning and likely will be continued on this medication but will defer to Dr Franklin. Would need rx for such. On Brilinta BID with ASA. Has defibrillator vest in place. Does vape tobacco-- encourage cessation. Questions/concerns addressed at this time. Review of Systems Review of Systems: All systems reviewed & are unremarkable except as noted in HPI & below Physical Exam Physical Exam: General: WD/WN male sitting up in bed, NAD HEENT: head normocephalic, atraumatic, mmm, trachea midline, +facial hair Resp: CTA, bibasilar crackles (resolved w/ cough), no wheezing, on room air Chest: defibrillator vest in place CV: regular rate/rhythm, S4 gallop, 1+ b/l pitting edema, no calf tenderness, R radial site w/ dressing c/d/i, pulse palpable GI: +BS, soft/NT : no vazquez MSK/Neuro: no focal deficit, no confusion or slurred speech. answering questions appropriately, strength intact bilaterally Psych: AOx3, cooperative with exam Skin: scattered psoriatic lesions to LE Results & Data Results & Data Vital Signs (Past 12 Hours) Vital Signs Temp Pulse Pulse Resp BP BP Pulse Ox 12/25/22 07:14 36.2 C L 55 L 16 112/72 98 12/24/22 22:40 51 L 12/25/22 03:16 140/82 12/25/22 03:07 36.4 C L 56 L 18 181/81 H 97 12/24/22 22:58 36.2 C L 59 L 18 166/84 H 98 O2 Del Method 12/25/22 07:14 Room Air 12/24/22 22:40 12/25/22 03:16 12/25/22 03:07 Room Air 12/24/22 22:58 Room Air Laboratory Results 12/25/22 12/25/22 12/24/22 Range/Units 06:03 06:03 17:09 WBC 4.99 (4.8-10.8) K/ul RBC 5.23 (4.70-6.10) M/uL Hgb 16.1 (14.0-18.0) g/dl Hct 47.0 (42.0-52.0) % MCV 89.9 (80.0-100.0) fL MCH 30.8 (25.0-34.0) pg MCHC 34.3 (32.0-36.0) g/dL RDW Std Deviation 47.9 H (36.4-46.3) fL RDW Coeff of Sony 14.5 (11.5-14.5) % Plt Count 208 (130-400) K/uL MPV 10.7 (9.4-12.4) fL Immature Gran % (Auto) 0.2 % Neut % (Auto) 58.4 % Lymph % (Auto) 24.2 % [place] % (Auto) 10.0 % Eos % (Auto) 6.4 % Baso % (Auto) 0.8 % Neut # (Auto) 2.91 (1.40-6.50) K/uL Lymph # (Auto) 1.21 (1.2-3.4) K/uL [place] # (Auto) 0.50 (0.11-0.59) K/uL Eos # (Auto) 0.32 (0-0.50) K/uL Baso # (Auto) 0.04 (0-0.2) K/uL Immature Gran # (Auto) 0.01 (0.01-0.20) K/uL Activ Coag Time Kaolin (94-140) SECONDS Sodium 138 136 (136-145) mmol/L Potassium 3.9 4.6 (3.5-5.1) mmol/L Chloride 105 103 (98-107) mmol/L Carbon Dioxide 26 28 (21-32) mmol/L Anion Gap 7 5 (3-11) BUN 13 15 (6-23) mg/dl Creatinine 0.74 0.89 (0.6-1.4) mg/dl Est Cr Clr Drug Dosing 120.9 100.5 ml/min Est GFR ( Amer) 109.1 101.1 ml/min Est GFR (Non-Af Amer) 94.1 87.2 ml/min BUN/Creatinine Ratio 17.6 16.9 (10-20) Glucose 103 H 109 H (70-99(Fasting)) mg/dl Calcium 9.0 9.1 (8.6-10.3) mg/dl Magnesium 2.0 (1.7-2.4) mg/dl Total Bilirubin 0.5 (0.2-1.0) mg/dl AST 15 (13-39) U/L ALT 6 L (7-52) U/L Alkaline Phosphatase 72 (34-104) U/L Total Protein 6.9 (6.0-8.3) gm/dl Albumin 3.7 (3.4-5.0) gm/dl Globulin 3.2 (2.5-4.0) gm/dl Albumin/Globulin Ratio 1.2 (0.9-2) 12/24/22 12/24/22 Range/Units 17:09 09:44 WBC 6.10 (4.8-10.8) K/ul RBC 4.84 (4.70-6.10) M/uL Hgb 15.0 (14.0-18.0) g/dl Hct 45.0 (42.0-52.0) % MCV 93.0 (80.0-100.0) fL MCH 31.0 (25.0-34.0) pg MCHC 33.3 (32.0-36.0) g/dL RDW Std Deviation 51.2 H (36.4-46.3) fL RDW Coeff of Sony 14.7 H (11.5-14.5) % Plt Count 219 (130-400) K/uL MPV 11.1 (9.4-12.4) fL Immature Gran % (Auto) 0.3 % Neut % (Auto) 61.5 % Lymph % (Auto) 21.3 % [place] % (Auto) 10.5 % Eos % (Auto) 5.6 % Baso % (Auto) 0.8 % Neut # (Auto) 3.75 (1.40-6.50) K/uL Lymph # (Auto) 1.30 (1.2-3.4) K/uL [place] # (Auto) 0.64 H (0.11-0.59) K/uL Eos # (Auto) 0.34 (0-0.50) K/uL Baso # (Auto) 0.05 (0-0.2) K/uL Immature Gran # (Auto) 0.02 (0.01-0.20) K/uL Activ Coag Time [place] 372 H (94-140) SECONDS Sodium (136-145) mmol/L Potassium (3.5-5.1) mmol/L Chloride (98-107) mmol/L Carbon Dioxide (21-32) mmol/L Anion Gap (3-11) BUN (6-23) mg/dl Creatinine (0.6-1.4) mg/dl Est Cr Clr Drug Dosing ml/min Est GFR ( Amer) ml/min Est GFR (Non-Af Amer) ml/min BUN/Creatinine Ratio (10-20) Glucose (70-99(Fasting)) mg/dl Calcium (8.6-10.3) mg/dl Magnesium (1.7-2.4) mg/dl Total Bilirubin (0.2-1.0) mg/dl AST (13-39) U/L ALT (7-52) U/L Alkaline Phosphatase (34-104) U/L Total Protein (6.0-8.3) gm/dl Albumin (3.4-5.0) gm/dl Globulin (2.5-4.0) gm/dl Albumin/Globulin Ratio (0.9-2) PG Care Time/CCT Total # of Minutes Spent Total Time Spent with Patient: Total time spent is greater than 50% in coordination of care (as documented) at patient's floor/unit and/or counseling patient: Coding Level of Care Code 49499 SUB INP/OBS CARE 2/35MIN Diagnoses Status post cardiac catheterization Z98.890 Ischemic cardiomyopathy I25.5 Acute HFrEF (heart failure with reduced ejection fraction) I50.21 Benign essential hypertension I10 Crohn's disease K50.90 Hyperlipidemia E78.5 Coronary artery disease I25.10
[2022-12-25] MEDS: MESALAMINE 800 MG TABCR PO SCH (08:14)
[2022-12-25] MEDS: VALSARTAN/SACUBITRIL 26/24MG TAB PO SCH (08:16)
[2022-12-25] MEDS: TICAGRELOR 90 MG TAB PO SCH (08:16)
[2022-12-25] MEDS ORDERED: METOPROLOL SUCC 50MG EXT REL TAB PO SCH (09:00)
[2022-12-25] MEDS ORDERED: ATORVASTATIN 40 MG TAB PO SCH (09:00)
[2022-12-25] MEDS ORDERED: terbinafine HCL 250 MG TAB PO SCH (09:00)
[2022-12-25] MEDS ORDERED: EMPAGLIFLOZIN 10 MG TAB PO SCH (09:00)
[2022-12-25] MEDS ORDERED: ASPIRIN 81 MG ECTAB PO SCH (09:00)
--- NOTE | 2022-12-25 16:45 | Discharge Summary ---
Date of Service December 25, 2022 Admission HPI Per Admitting Provider Patient has a recent history of newly diagnosed cardiomyopathy and abnormal stress test performed at outside facility. He came in for definitive evaluation by coronary angiography. Cardiac catheterization was performed revealing severe obtuse marginal disease. He underwent PCI with implantation of drug-eluting stent to the OM. He was admitted overnight for observation. He was initiated on dual antiplatelet therapy with aspirin and Brilinta. His EF was less than 35% so a wearable defibrillator was also fitted while he was here. We initiated guideline directed medical therapy for secondary prevention of coronary disease as well as beginning optimize therapy for chronic systolic heart failure. Patient did well overnight without any chest pain or other symptoms. His renal function remained stable. At this time he is deemed appropriate for discharge from a cardiovascular standpoint. Admission Exam (Per Admitting) Constitutional WD/WN, vitals as above (Obese, chronically ill) Eyes Extraocular muscles intact. Sclera are anicteric. ENMT Oral mucosa is pink moist and intact Neck No JVD or bruits Respiratory Clear to auscultation bilaterally. No wheezing, rhonchi, or rales. Fair air movement. Cardiovascular Regular rate and rhythm. S4 gallop. Soft systolic murmur. 1+ bilateral lower extremity edema. Musculoskeletal no cyanosis or clubbing, extremities motor strength 5/5 Neurologic Reduced hearing. Cognition intact. Speech fluent. No focal deficits. No tremor. Psychiatric A+Ox3, euthymic affect Discharge Data Consultations 12/24/22 10:55 Consult Hospitalist Routine 12/25/22 11:29 [facility] [place] CHF Program Referral Routine Procedures Performed Operation Date: 12/24/22 09:30 Actual Procedures p Cineradiography w/Routine Exam - Konstantin Franklin MD, PhD p Cath, Left with Cors and Vent - Konstantin Franklin MD, PhD s Drug Eluting Stent SGl Vessel - Konstantin Franklin MD, PhD Hospital Course (1) Coronary artery disease: Status post PCI. Dual antiplatelet therapy with aspirin and Brilinta. Guideline directed medical therapy with atorvastatin and metoprolol succinate in addition to the aspirin. Valsartan as part of Entresto. (2) Ischemic cardiomyopathy: Mild lower extremity edema. Chronic heart failure regimen to include Lasix 20 mg daily, Entresto 24/26 mg p.o. twice daily, metoprolol succinate ER 50 mg daily, and Jardiance 10 mg daily. Assure wearable defibrillator per instructions. Plan Admitted for observation. No adverse events. Laboratory data stable. Tolerated medications. Appropriate for discharge at this time. We will follow- up next week with cardiology. Discharge Instructions ACTIVITY RECOMMENDATIONS: Excess manipulation of the wrist should be avoided for the next 24-48 hours. * No lifting over 2 pounds (approximately a 1/2 gallon of milk) with the utilized arm for 24 hours. * No strenuous activity such as bowling or tennis for 3 days. * Keep the site of the procedure covered with a bandage for 24 hours. *You may shower the day after the procedure. Do not take a tub bath or submerge the puncture site in water for the next 3 days. *Do not operate any motorized equipment for 3 days. SPECIAL CARE INSTRUCTIONS: The site may be slightly bruised and sore following your procedure. Should any of the following occur, contact the Dr. who performed your procedure. 1. Redness/inflammation, swelling, chills, or fever, or colored drainage at procedure site within 3-7 days after your procedure. 2. Coldness, discoloration, ongoing numbness, severe pain, or swelling. Expect mild tingling of hand and tenderness at the puncture site for up to three days. If this persists beyond three days, or other symptoms develop, notify the Dr. who performed your procedure. BLEEDING: If the procedure site on your wrist begins to bleed, do not panic 1. Place 1 or 2 fingers firmly just slightly above the insertion site to stop the bleeding. You may be able to feel your pulse as you hold pressure. 2. Lift your finger after 5 minutes to see if the bleeding has stopped. 3. Once the bleeding has stopped, gently wipe the wrist area clean with a bandage. * If the bleeding from your wrist does not stop after 10 minutes, or if there is a large amount of bleeding or spurting, call 911 (do not drive yourself to the hospital). SKIN IRRITATION: * You may experience some redness and/or swelling in the area where radiation was administered. If any skin irritation occurs, please contact your family physician. FOLLOW UP VISIT: Keep any scheduled doctor appointments. Coding Level of Care Code 54517 IN/OBS DISCH 30 MIN/LESS Diagnoses Coronary artery disease I25.10 Ischemic cardiomyopathy I25.5
--- NOTE | 2022-12-25 17:44 | Electrocardiogram Report ---
Test Reason : Blood Pressure : / mmHG Vent. Rate : 058 BPM Atrial Rate : 058 BPM P-R Int : 176 ms QRS Dur : 138 ms QT Int : 452 ms P-R-T Axes : 059 -43 140 degrees QTc Int : 443 ms Sinus bradycardia with frequent , and consecutive Premature ventricular complexes Left axis deviation Left ventricular hypertrophy with QRS widening and repolarization abnormality Abnormal ECG When compared with ECG of 24-DEC-2022 11:47, Premature ventricular complexes are now Present Right bundle branch block is no longer Present Confirmed by Naren Pittman ([id number]) on 12/25/2022 5:43:57 PM Referred By: Konstantin Franklin Confirmed By:Jake Pittman
== END 2022-12-25 15:16 | disposition home or self-care (01) ==
LOC: 4W 08:14 → CC 08:14

== ENCOUNTER 2023-07-01 06:46 | Inpatient (IN) ==
--- OUTSIDE RECORDS SUMMARY | 2023-07-01 06:54 | External Medical Summary | Continuity of Care Document ---
Author Name Unknown Organization [place] [address] [facility] Address [address] [place] [id number] Care Team Providers Care Tenter Name Role Phone Rohit Parkinson Primary Care Physician [phone] [facility] [id number] Date(s): 06/01/23 - 06/01/23 [place] [address] [facility] [address] [address] [phone] Encounter Diagnosis Body mass index [BMI] 29.0-29.9, adult(Discharge Diagnosis) - 06/01/23 Crohn's disease(Discharge Diagnosis) - 06/01/23 Discharge Disposition: Home or Self Care Attending Physician: ROLY Peace Kelli Jo Referring Physician: ROLY Peace Kelli Jo Allergies, Adverse Reactions, Alerts No Known Allergies Assessment and Plan Extracted from: Title:Office Visit Note Author:ROLY Peace Kell i Jo Date:06/01/23 Body mass index [BMI] 29.0-2 9.9, adult Crohn's disease Patient presents today for a 3-month follow-up, doing well on Humira every 2 weeks and Lialda.Patient reports no ongoing GI symptoms and is doing well. Pt was to have colo 07/2023, has had stents placed since last appt and has plans for pacemaker. Cardiology recommended rescheduling November 2023 for clearance. Obtain Fecal calprotectin. Pt is interested in reducing medications if possible. Advised we will taper Lialda if stool is normal. Obtain routine laboratory studies to include CBC with differential, CMP, and vitamin D, B12, and Mg. IBD Health Maintenance - High Risk Colon Cancer Screening: - Drug Toxicity Monitoring/Counseling: Established with Dr. Poornima Rodriguez, annual appts planned - Drug Monitoring - Age appropriate Cancer Screening: colonoscopy plan to reschedule 11/2023, skin cancer screening following with Dr. Jose - Bone Disease: monitor vitamin D at least yearly, DEXA - Vaccinations: - Yfqnmkrze45/02/2023 - Pneumonia: Scheduled 5 weeks for midcycleseries- Prevnar (PCV13), followed by pneumovax (PPSV23) 8 weeks later, and a repeat PPSV23 5 years after the first dose. - Inactive shingles: will complete after pneumonia - COVID and boosters: Per patient has obtained - Live vaccine precautions reviewed: patient should NOT receive Shingles Vaccine (Zostavax) or Yellow Fever Vaccine while on immunosuppression. Cardiology will clear for COLO 11/2023, in lieu of previous 07/2023 Pacemaker planned. GI follow up in6 months, sooner if needed. I have spent36 minutes in evaluation, education and documentation of this pt in both face to face and non-face to face activities. 4 minutes pre-charting 17 minutes face to face evaluation 15 minutes documenting Immunizations Given and Recorded Vaccine Date Status Refusal Reason influenza virus vaccine, inactivated 03/15/23 Give n Medications Aleve Start: 06/03/15 10:52:00, 220 mg =, PO, q8h Start Date: 06/03/15 Status: Ordered aspirin 81 mg oral tablet Start: 06/03/15 10:52:00, 1 tab, PO, Daily Start Date: 06/03/15 Status: Ordered Brilinta (ticagrelor) 90 mg oral tablet Start: 03/09/23 9:47:00 EDT Start Date: 03/09/23 Status: Ordered Entresto 24 mg-26 mg oral tablet Start: 06/01/23 9:54:00 EST, 1 tab, PO, bid Start Date: 06/01/23 Status: Ordered ferrous sulfate 325 mg (65 mg elemental iron) oral delayed release tablet Start: 06/16/22 6:26:00 EST, 1 tab, PO, Daily, Disp# 90 tab, Refills: 3, Pharmacy: [id number] Start Date: 06/16/22 Status: Ordered furosemide 20 mg oral tablet Start: 12/17/22 8:54:00 EDT Start Date: 12/17/22 Status: Ordered Humira Pen (citrate free) 40 mg/0.4 mL SQ kit Start: 08/24/22 14:20:00 EDT, 0.4 mL, subQ, d0qvheu, Disp# 2 kit, Refills: 11, start on day 29 after induction, Pharmacy: [facility] Start Date: 08/24/22 Status: Ordered Humira Pen (citrate free) CD/UC/HS Starter Pack 80 mg/0.8 mL SQ kit Start: 08/24/22 14:20:00 EDT, See Instructions, subQ, Disp# 1 kit, Refills: 0, INJECT 2 PENS (160 MG) UNDER THE SKIN ON DAY 1; THEN 1 PEN (80 MG) ON DAY 15; BEGIN MAINTENANCE DOSE DAY 29., Pharmacy: [facility] Start Date: 08/24/22 Status: Ordered Jardiance 10 mg oral tablet Start: 03/09/23 9:47:00 EDT, 1 tab, PO, Daily, Disp# 30 tab Start Date: 03/09/23 Status: Ordered Lialda 1.2 g oral delayed release tablet Start: 06/01/23 10:17:00 EST, 2 tab, PO, bid, Disp# 360 tab, Refills: 3, Pharmacy: [id number] Start Date: 06/01/23 Stop Date: 05/26/24 Status: Ordered metoprolol tartrate Start: 06/03/15 10:51:00 EST, 50 mg =, PO, Daily Start Date: 06/03/15 Status: Ordered sildenafil 50 mg oral tablet Start: 11/19/22 8:59:00 EDT, 10 tab Start Date: 11/19/22 Status: Ordered simvastatin 40 mg oral tablet Start: 06/03/15 10:51:00, 1 tab, PO, qhs Start Date: 06/03/15 Status: Ordered terbinafine 250 mg oral tablet Start: 12/01/22 14:15:00 EDT, 1 tab, PO, Daily, Disp# 30 tab, Refills: 2, Pharmacy: [id number] Start Date: 12/01/22 Status: Ordered Mental Status 06/01/23 Barriers to Learning one year None evide nt Mandatory Health Literacy Documentation Yes Communication Barrier Present No Health Literacy Communication Barriers N ever Primary Language Lithuanian Problem List Condition Confirmation Course Effective Dates Status Health St atus Informant Anemia Confirmed Active Cellulitis Confirmed Active Crohn's colitis Confirmed Active Rash Confirmed Active High cholesterol Confirmed Active Hypertension Confirmed Active Iron deficiency anemia Confirmed Active Joint pain Confirmed Active Leukopenia Confirmed Active Redness and swelling of forearm Confirmed Active Diagnosis Diagnosis Type Effective Dates Health Status Cl inical Service Informant Crohn's disease Discharge Diagnosis 06/01/23 Non-Specified Body mass index [BMI] 29.0-29.9, adult Discharge Diagnosis 06/01/23 Non-Specified Procedures Procedure Date Related Diagnosis Body Site Status Laboratory findings data interpretation 1, 2 08/07/22 Completed Laboratory findings data interpretation 3 06/12/22 Completed Laboratory findings data interpretation 4 05/15/22 Completed Colonoscopy 5 05/01/22 Completed Laboratory findings data interpretation 6 04/13/22 Completed Laboratory findings data interpretation 7 10/22/21 Completed Colonoscopy 8 02/03/21 Completed Shave biopsy and cauterizati on of skin 9 06/03/15 Completed Angioplasty 1998 Completed Knee 1989 Completed Vasectomy 1979 Completed 1Infliximab level 0 and Antibody 20.3 2BUN, CR, AST, ALT all normal CBC Hgb 13.4 L, (nl 14), hct 41.9 (nl 42). 3BUN 25 H, Cr 0.77 nl, AST nl, ALT nl, CBC WBC 4.57 L, Hgb 13.5 L, 4BUN 20 nl, Cr 0.93 nl, AST 12 nl, CBC nl, 5BUN, CR, AST, ALT all nl, CBC WBC 4.1 L, 6Quantiferon gold: negative 7Hgb a1c 6.4, CMP nl, Lipids Trigs 79 nl, Chol 115 nl, CBC nl. 8COLO to TI, inflamation.erosions from 10 -30cm bx, remainder of colon nl, aspirate sent for Cdiff repeat colo 5 yrears for fhx of CRC 9[facility] Vital Signs Most recent to oldest [Reference Range]: 1 Height 183.42 cm (06/01/23 9:55 AM) Patient Weight 99.9 kg (06/01/23 9:55 AM) Body Mass Index 29.69 kg/m2 (06/01/23 9:55 AM) Heart Rate 68 bpm (06/01/23 9:55 AM) Respiratory Rate 12 br/min (06/01/23 9:55 AM) Blood Pressure 110/62mmHg (06/01/23 9:55 AM) Cuff Pulse Pressure 48 mmHg (06/01/23 9:55 AM) BP Location # 1 Left Arm (06/01/23 9:55 AM) Social History Social History Type Response Tobacco Current every day zeke umana Smoking Status Former Smoker, quit > 1 yr Sex Gastroenterology Outpatient Note * ROLY Peace, Snow Anisa: PERFORM Event Display: Gastroenterology Outpt Note Authored Date: [id number] Chief Complaint Pt here for 3 month f/u for CD Continues on Humira. Needs refill of mesalamine. History of Present Illness The patient is a pleasant 28-divg[age]oynldmvvzo presents today forfollow-up evaluation ofCrohns disease.[facility],and past medical historyreviewed. Prior records: 08/2019 [place] to cecum forFhxof CRC normal with repeat 5 years recommended 02/03/21 [place] to TI for diarrhea and rectal bleeding. Exam showed severecolitsfrom 10-30 cm with path c/w chronic active colitis. Stool aspirate forCdiffnegative Icontacted the patients PCP, Kyler02/04/21 regarding my recommendation to startmesalamine1.2 gm --2 tabs daily. Reviewed most recent labs in [facility] EMR CBC, BMP 01/23/21 normal. Most recent LFTS in [facility] EMR reviewed 04/2020 normal. Pt states he states stools look normal again and blood only once in awhile. Stools are soft still. Stools were 25 per day prior tocoloand now 3- 4bmsper day. His pattern years ago was once a day in the am. 03/21/21 New patient to office 03/21/21 labs: CBC MCV 99.6 H, [id number] H and TB 8.4 H 04/04/21 labs: CBC MCV 100 butnlfor [facility] lab, SPEP elevated alphaglobulingc/w inflammation B12 251 borderline, folate 5.3 L 05/07/21 labs: CBC MCV 99, GETzatz76, Hgb a1c 5.9, TP 8.1nl, globulin 4.5 H, lipidok, PSA normal. 05/14/21DrAboulhosnstarted patient [id number] and folic acid. Pt states stools are soft with 2 in am and 3rd in afternoon. He continues to see blood in the stool everyday with first in am the heaviest. Bleeding is less than prior to mesalamine. 07/16/2021 Canasa suppository added to regimen 06/30/2021. Also onlialda2 tabs bid. Continues tosee blood in stools every day. Moving bowels 7-10/day and 2-3 times at night. 08/27/2021 Pt did not get labs done citing symptoms improved. Diarrhea and bleeding resolved on 3 of the 3 mg budesonide tabs. He is currently on 2 tabs for about 3 weeks and still stable. 10/27/2021 Pt states went to down to 2 pills for 3 weeks then 1 pill for about 1.5 weeks then hadcramps and diarrhea and bleeding. Week ago started ago started back on 3 tabs daily. 01/01/2022 Pt does see some rectal bleeding. At night he can see blood/mucous every 4 hours. During the day he will have 2 bms and mushy. He cut back some on Aleve but needs it for his joints. He continues on Lialda 2 tabs bid and budesonide 9 mg total daily. Complains of some ankle pain and some ankle swelling although improved recently. 01/02/2022 labs:CBC Hgb 11.6 L, CMP nl. 01/07/2022 labs: Fe sat 6% L, ferritin 14 L, B12 nl, folate nl 01/23/2022 labs: CBC Hgb 13.2 nl 04/06/2022t states has diarrhea daily. Has stools 4-5 times during day and every hour at night. Is on the Lialda and Budesonide. 04/13/2022 labs: Cdif neg, BUN nl, CR nl, CBC Hgb 13.6 L, AST nl, ALT nl. Heb B Sag neg, hep BCore neg 05/01/2022 labs: BUN nl, Cr nl, AST nl, ALT nl, CBC WBC L, Hgb nl 15.5. 05/11/2022t had Remicade infusion 05/01/2022. He states 3 days later has swelling and redness in right arm. It hurt for few days and much improved at present. IV was in right hand. At day 5 went bowling and is right handed bowler.Pt states the stools are still as frequent but bleeding improved. Was seeing shannan blood before but not pink stools. No abd pain. 05/11/2022Venous duplex RUE neg for clot. 05/15/2022 BUN, CR, AST, CBC nl, 06/01/2022 Pt is s/p 2nd infusion of Remicade 05/15/2022. No problems during infusion or other late side effects.Pt took 14 days of Keflex for cellulitis of right arm and he states that has resolved.Pt states bleeding has much improved. He can see blood during BM at night but not during the day. Some formation of stools and not as frequent. Still on Budesonide 3 caps daily and Lialda.No abd pain. Appetite is good.He is no longer on Fe. 06/12/2022 labs: BUN 25 H(nl to 23), CR 0.77 nl, AST 12 nl, ALT 10 nl, CBC WBC 4.57 L, Hgb 13.5 L, Hct 42.5 (vs 15.5/49.1 05/15/2022) 3Pt having multiple stools over 24 hours---during the day every 2 hours passes stool. In the am he passes large amount couple times in the morning but then small mucous/blood every couple hours including at night. Sees blood in stools mostly at night.Restarted the Fe.He is still on Lialda and Budesonide ( 9 mg).Remicade infusion coming up this week.Cellulitis right forearm resolved but has joint pain in the elbow on right.States has easy bruising. 08/07/2022 labs:BUN, Cr, AST, ALT all normal. CBC Hgb 13.4 borderline low (nl 14), Inflximab level 0 with Ab 20. 08/24/2022 Stools still every hour stools. Sees blood most bms. No abd pain. 09/18/2022rednisone is controlling symptoms at 20 mg daily. No diarrhea nor bleeding for 3 weeks. Pt states he has one formed bm in am and one in afternoon. He is still on Lialda. He states Humira not started as it has not come yet. 10/21/2022Started Humira 10/05/2022 and finished induction 10/19/2022.Typical stool pattern one in am and one in evening.No abd pain.No bleeding.Easy bruising most likely from prednisone. 10/27/2022 labs:CBC nl 11/19/2022 Off prednisone for 2 week or so. Regular bms maybe 1-2 per day.No bleeding. No abd pain.Pt now with rash on right forearm and foot. Some pruritus. He had this prior to Humira but thinks may have started when Remicade started. 12/17/2022 Pt saw dermatology and placed on terbinafine by them--the rash on arm determined to be fungal. Rash is better but plan per patient is to be on it about 3 months.Moving bowels 1-2 times a day. No bloody stools nor black stools.No abd pain.Complains of some lower ext edema. Has hx of chest pain resolved with nitro in last few weeks. Has criminal justice social worker appt tomorrow.He did not get Humira level done. 02/02/2023 labs: BMP unremarkable, CBC unremarkable, adalimumab activity 9.38 antibody not detected,ALT 22, T. bili 0.5, alk phos 100, AST 25 03/09/2023 OV ([place]): routine follow-up forCrohn's colitis diagnosed on colonoscopyin January 2021. Patient states heinjected his Humira yesterday, he remains on this every 2 weeks. He denies fever, chills, night sweats. He deniesheartburn, unintentional weight loss,dysphagia, nausea, vomiting, early satiety, bloating, diarrhea or constipation or abdominal pain. He states that he has a [place] type bowel movement dailywithout mucus,melenaor hematochezia. He states that this is his normal and has been since prior to his diagnosis. Of note patient does inform me that in Novemberhe had a heart attack with a stent placedand has been feeling well since. 06/01/2023 OV ([place]): Patient returns for routine follow-upCrohn's disease. Doing well on Humiraand oral mesalamine. He is asking if he needs to be on both medications at this time. Currently he reports a [place] type bowel movement daily without melena, hematochezia, or mucus. Hedenies nausea, vomiting or abdominal pain. He denies heartburn or dysphagia. He has had weight loss secondary to Jardiance. IBD History - Diagnosis:02/03/2021 10-30 cm with path c/w chronic active colitis. - Previous treatments: Remicade, Prednisone, - Current treatment: Lialda, Humira q2wks (09/2022) - IBD surgeries: N/A - Extraintestinal manifestations (joint, eye, mouth ulcers, skin lesions): N/A - Upper GI or Perianal involvement: N/A - FHx of IBD or CRC:Mother with CRC in her 40s Social history: Tobacco: Quit 2012, Smoked 40yrs 1ppd ETOH: Drink daily, 1 glass of whiskey Recreational Drug use including Marijuana: N/A Retired from [employer] and [employer] Family:, 2 children, 3 grand-children Family history: Deniesfamilyhistory of liver disease, IBD, IBS, pancreatic disease, celiac disease Mother CRC in her 40's. No further complaints or concerns today. Physical Exam Vitals & Measurements HR:68(Monitored) RR:12 BP:110/62 HT:183.42cm WT:99.900kg(Dosing) WT:99.9kg BMI:29.69 General:Alert and oriented, No acute distress, appears stated age HENT:Normocephalic, normal hearing Respiratory: Respiration are non-labored, pt speaking in complete sentences,and no evidence of respiratory distress is noted Integumentary:Exposed skin viewable is dry and intact Psychiatric:Cooperative, appropriate mood & affect, Normal judgement Assessment/Plan Body mass index [BMI] 29.0-29.9, adult Crohn's disease Patient presents today for a 3-month follow-up, doing well on Humira every 2 weeks and Lialda.Patient reports no ongoing GI symptoms and is doing well. Pt was to have colo 07/2023, has had stents placed since last appt and has plans for pacemaker. Cardiology recommended rescheduling November 2023 for clearance. Obtain Fecal calprotectin. Pt is interested in reducing medications if possible. Advised we will taper Lialda if stool is normal. Obtain routine laboratory studies to include CBC with differential, CMP, and vitamin D, B12, and Mg. IBD Health Maintenance - High Risk Colon Cancer Screening: - Drug Toxicity Monitoring/Counseling: Established with Dr. Poornima Rodriguez, annual appts planned - Drug Monitoring - Age appropriate Cancer Screening: colonoscopy plan to reschedule 11/2023, skin cancer screening following with Dr. Jose - Bone Disease: monitor vitamin D at least yearly, DEXA - Vaccinations: - Axbnynysh36/02/2023 - Pneumonia: Scheduled 5 weeks for midcycleseries- Prevnar (PCV13), followed by pneumovax (PPSV23) 8 weeks later, and a repeat PPSV23 5 years after the first dose. - Inactive shingles: will complete after pneumonia - COVID and boosters: Per patient has obtained - Live vaccine precautions reviewed: patient should NOT receive Shingles Vaccine (Zostavax) or Yellow Fever Vaccine while on immunosuppression. Cardiology will clear for COLO 11/2023, in lieu of previous 07/2023 Pacemaker planned. GI follow up in6 months, sooner if needed. I have spent36 minutes in evaluation, education and documentation of this pt in both face to face and non-face to face activities. 4 minutes pre-charting 17 minutes face to face evaluation 15 minutes documenting Problem List/Past Medical History Ongoing Anemia Cellulitis Crohn's colitis High cholesterol Hypertension Iron deficiency anemia Joint pain Leukopenia Rash Redness and swelling of forearm Procedure/Surgical History Laboratory findings data interpretation (08/07/2022)Laboratory findings data interpretation (06/12/2022)Laboratory findings data interpretation (05/15/2022)Colonoscopy (05/01/2022)Laboratory findings data interpretation (04/13/2022)Laboratory findings data interpretation ()Colonoscopy (02/03/2021)Shave biopsy and cauterization of skin (06/03/2015)Angioplasty (1998)Knee (1989)Vasectomy (1979) Medications adalimumab(Humira Pen (citrate free) CD/UC/HS Starter Pack 80 mg/0.8 mL SQ kit), See Instructions, subQ adalimumab(Humira Pen (citrate free) 40 mg/0.4 mL SQ kit), 40 mg= 0.4 mL, subQ, a1usduc, 11 refills aspirin(aspirin 81 mg oral tablet), 81 mg= 1 tab, PO, Daily empagliflozin(Jardiance 10 mg oral tablet), 10 mg= 1 tab, PO, Daily ferrous sulfate(ferrous sulfate 325 mg (65 mg elemental iron) oral delayed release tablet), 325 mg=1 tab, PO, Daily, 3 refills furosemide(furosemide 20 mg oral tablet) mesalamine(Lialda 1.2 g oral delayed release tablet), 2.4 g= 2 tab, PO, bid, 3 refills metoprolol(metoprolol tartrate), 50 mg, PO, Daily naproxen(Aleve), 220 mg, PO, q8h sacubitril-valsartan(Entresto 24 mg-26 mg oral tablet), 1 tab, PO, bid sildenafil(sildenafil 50 mg oral tablet) simvastatin(simvastatin 40 mg oral tablet), 40 mg= 1 tab, PO, qhs terbinafine(terbinafine 250 mg oral tablet), 250 mg= 1 tab, PO, Daily, 2 refills ticagrelor(Brilinta (ticagrelor) 90 mg oral tablet) Allergies NKA Social History Smoking Status Former Smoker, quit > 1 yr Alcohol Use:Current Type:Liquor Frequency:Daily - Comments: 1-2 drinks of liquor qd Tobacco Use:Current every day smoker Type:vape Family History Breast cancer: Mother. Cancer of colon: Mother. Heart attack: Mother. Health Status Family Member(s) Father: History is unknown Sister: History is negative Brother: History is negative Family Member(s) Relationship: Mother, Age: Unknown Relationship: Father, Age: Unknown Immunizations Vaccine Date Status influenza virus vaccine, inactivated 03/15/2023 Given Recommendations Health Maintenance Pending(in the next year) Due Adult COVID-19 Vaccination due06/01/23Unknown Frequency Adult Social Determinants of Health Screening due06/01/23Unknown Frequency Adult Tdap/Td Vaccine due06/01/23Unknown Frequency Hepatitis C Screening due06/01/23One-time only Medicare Annual Wellness Visit due06/01/23and every 1year Pneumococcal Vaccine Older Adults due06/01/23One-time only Shingles Vaccine due06/01/23One-time only Due In Future Adult Influenza Vaccine not due until12/13/23and every 1year Satisfied(in the past 1 year) Satisfied Adult Influenza Vaccine on03/15/23.Satisfied by DEINSE Goel Erin Body Mass Index on06/01/23.Satisfied by Ke[employer], UTILITY SALES REPRESENTATIVE, Sujatha Electronic Signature on File CC: Rohit Parkinson DO [facility] [address] [place] [facility] [place] [address] * Electronically Reviewed/Signed by: Snow Peace PA-C Author Signature Dt/Tm:06/01/2023 10:38 AM Division of Gastroenterology Electronically Reviewed/Signed by: Anival Bates MD Cosigner Signature Dt/Tm: 06/01/2023 10:51 AM Division of Gastroenterology [facility] Patient Care team information Care Team Personnel Name: DO Parkinson William Price Position: Referring Member Role: Primary Care Provider Address: Address: [facility] [address] [place] [facility] [place] [address] [place] Care Team Related Persons Name: JOZEF PARSONS
--- NOTE | 2023-07-01 08:00 | History & Physical Bridge Note ---
Date of Service July 01, 2023 History & Physical Bridge Note I have examined the patient, reviewed the History & Physical and in the interval since the performance of the History & Physical I have noted the following changes of clinical significance: no changes noted
--- NOTE | 2023-07-01 08:00 | Pre Anesthesia Assessment ---
Date of Service July 01, 2023 Pre Sedation Assessment Vital Signs Pulse Resp BP Pulse Ox O2 Del Method 07/01/23 07:05 49 L 18 177/79 H 98 Room Air Cardiovascular + regular rhythm and + bradycardic Respiratory + respiratory effort normal Pre-Sedation Airway Assessment Smoking Status: Never smoker Hx Sleep Apnea: No Hx Difficult Intubation: No Short, Thick Neck: No Thyromental Distance: > or= 3.5 Finger Breadths Oral Cavity: + WNL Mallampati Class: II ASA: ASA3 NPO Status Date of Last Intake of Fluids: 06/30/23 Time of Last Intake of Fluids: 22:00 Date of Last Intake of Solid Food: 06/30/23 Time of Last Intake of Solid Foods: 22:00 Procedure Planning Contraindications for Sedation: none Current Medications Reviewed: Yes Notes The planned sedation has been discussed with the patient. Informed Consent was obtained. I have identified the patient, determined the appropriateness of sedation and have assessed the patient immediately prior to the procedure. All medicine(s) and interventions are by my order.
[2023-07-01] MEDS: fentaNYL citrate PF 100 MCG/2 ML VIAL ONE (08:51)
[2023-07-01] MEDS: BUPIVACAINE 0.25% PF 30 ML VIAL ONE (08:52)
[2023-07-01] MEDS: ceFAZolin 330 MG/ML 1 GM VIAL ONE (08:52)
[2023-07-01] MEDS: MIDAZOLAM HCL 5 MG/ML 1 ML VIAL ONE (08:52)
[2023-07-01] MEDS: VANCOMYCIN HCL 1000MG/20ML VIAL ONE (08:53)
[2023-07-01] MEDS: LIDOCAINE 1% LOCAL 20 ML VIAL ONE (08:53)
[2023-07-01] MEDS: WATER, STERILE FOR INJ 10 ML VIAL ONE (08:53)
[2023-07-01] MEDS ORDERED: ACETAMINOPHEN 325 MG TAB PO PRN (09:07)
--- NOTE | 2023-07-01 09:07 | Electrophysiology Report ---
Date of Service July 01, 2023 Electrophysiology Procedure Electrophysiology Procedure Report Performed: Implantation of dual-chamber ICD Staff scarfer operator: Naren Pittman MD Indication: The patient is a 67-year-old gentleman with a history of a nonischemic cardiomyopathy. He is [place] heart Association class 2 symptoms. He is on optimal medical therapy with a persistently low ejection fraction less than 35%. He has not suffered a myocardial infarction in the past 40 days. He has not had revascularization in the last 90 days. He has an anticipated longevity greater than 1 year. QRS duration is normal and he has therefore not a candidate for cardiac resynchronization therapy. Based on this information he was felt to be a good candidate for an ICD as primary prevention against sudden cardiac . I did speak with the patient regarding the risks of not having an ICD. Shared decision-making and a proprietary pamphlet were employed in order to decide about the benefits and risks associated with the procedure. The patient has elected to proceed. Procedure detail: The patient was informed the risks benefits and alternatives to the intended procedure. He understood which proceed. He was taken to the electrophysiology suite in a fasting state. Conscious sedation was administered per protocol the patient was monitored electrocardiographically throughout the procedure. A preoperative antibiotic was also administered. The left upper pectoral area was prepped and draped in usual sterile fashion. This area was anesthetized using subcutaneous administration of lidocaine and Marcaine solution. An incision was made at this site and carried down the prepectoralis fascia using sharp dissection. Electrocautery was also employed for dissection as well as for hemostasis. A device pocket was fashioned tissues above the pectoralis muscle. The left axillary vein was subsequently accessed twice using modified Seldinger technique. Sheath was placed over guidewires at this site used facilitate passage of the leads to the respective chambers under fluoroscopic guidance. This included right ventricular and right atrial leads. Adequate sensing threshold parameters were obtained prior to active fixation of this lead to the endocardial surface. The proximal portion of the leads were then sutured to prepectoralis fascia using nonabsorbable suture. The device pocket was irrigated with antibiotic solution. The leads were then attached to the device. The device and leads were then placed in the pocket the pocket was closed in 3 layers of absorbable suture. Steri-Strips and sterile dressing were applied. The patient tolerated procedure well. There were no immediate complications. Equipment used Defibrillator: Magnetic Tape Composer Operator Agiliance. Model number [id number] serial number [id number] Right atrial lead: Magnetic Tape Composer Operator Medtronic. Model 5076 serial number [id number] Right ventricular lead: Magnetic Tape Composer Operator Medtronic model 6935 mm serial number [id number] Measured data Right atrial lead: P-waves measured 1.5 mV. Pacing threshold 1.75 volts at 0.4 milliseconds with a pacing impedance of 456 Ohms Right ventricular lead: R-waves measured 12.8 mV. Pacing threshold was 0.75 volts at 0.4 milliseconds with a pacing impedance of 665 Ohms Impression: Successful implantation of dual-chamber ICD [facility] Electrophysiology codes ICD Procedure 1: ICD: 81610 Insert single or dual ICD system PG Moderate Sedation Codes Moderate Sedation Codes Procedure 1: Sedation/Anesthesia: 45061 Mod Sedation by the same physician;Init15 Min Child Age 5 & Up Procedure 2: Sedation/Anesthesia: 43139 Mod Sedation by the same physician; Ea [id number] Minutes
--- NOTE | 2023-07-01 09:07 | Post Anesthesia Assessment ---
Date of Service July 01, 2023 Post Sedation Assessment Vital Signs Pulse Resp BP Pulse Ox O2 Del Method 07/01/23 07:05 49 L 18 177/79 H 98 Room Air Recovery Score Activity: Moves 4 extremities Respiration: Deep Breath/Cough Circulation: +/-20% PreAnes Value Consciousness: Fully Awake Oxygen Saturation: > 92% On Room Air Discharge Sedation Level of Care: Fast Track Phase II Post Sedation Plan On clinical assessment, the patient appears to have tolerated the sedation without complications. Patient is recovering as anticipated. Patient will continue to be monitored by nursing and may be discharged when sed ation discharge criteria are met per below protocol. Upon Completions of procedure up to 15 minutes continue every 5 minute vital signs and the P.A.R. score; then discharge to a Phase I or Fast Track to Phase II per the following guidelines: * Discharge Patient to appropriate Phase II area if PAR is 8 or greater or return to pre- procedure baseline. The post - procedure orders will be as directed. * If PAR score is less than 8 or not return to pre-procedure baseline then patient will follow Phase I monitoring till PAR is reached for Phase II. The Phase I may be done in procedure room or may call to secure a Phase I area. * If naloxone or flumazenil are used for reversal, hold in Phase I for continued monitoring from when last reversal dose was given for a minimum of 60 minutes or longer pending the nurse and/or physician discretion of patient condition before discharge to Phase II. Please call the Sedation Physician to re-evaluate and complete post-note for discharge to Phase II area. Do NOT discharge from procedure sedation or Phase 1 until post- sedation evaluation note is complete by procedure /sedation MD Sedation Discharge Instructions to be given to the patient at discharge to home.
[2023-07-01] MEDS ORDERED: oxyCODONE HCL IR 5 MG TAB (IMMEDIATE RELEASE) PO PRN (09:12)
[2023-07-01] MEDS: ceFAZolin 1000MG 1,000 MG/7.5 ML SYR IV ONE (17:03)
[2023-07-01] MEDS: VALSARTAN/SACUBITRIL 26/24MG TAB PO SCH (20:24)
[2023-07-01] MEDS: TICAGRELOR 90 MG TAB PO SCH (20:24)
--- NOTE | 2023-07-02 07:43 | XRay Report ---
TWO VIEW CHEST CLINICAL HISTORY: Pacemaker implantation.. FINDINGS: PA and lateral chest radiographs are compared to study dated 12/11/2022. A 2-lead cardiac AI CD has been implanted and partially obscures the left upper chest. Leads project over the right atria l appendage and right ventricle. The heart is enlarged noting atherosclerotic calcification of the th oracic aorta. The pulmonary vasculature is noncongested. Emphysematous change is suspected. Chronic i nterstitial thickening is similar to previous. Foci of probable scarring are seen throughout both [place] gs, greatest at the lung bases. No pleural effusion is identified. There is no pneumothorax. The skel etal structures are osteopenic. The bony thorax appears intact. Degenerative change is noted in the s houlders and spine. IMPRESSION: 1. A 2-lead cardiac AICD has been implanted as above. No pneumothorax is identified post procedure. 2. Cardiomegaly without radiographic evidence of congestive failure. 3. Suspect emphysema. 4. No airspace consolidation typical for pneumonia or pleural effusion is identified. 5. The right lower lobe nodular opacity questioned on 12/11/2022 is not clearly seen. Given the amount of parenchyma scarring, a follow-up chest CT is recommended to further evaluate the underlying lung parenchyma. ACT 112: Positive. There are findings on this exam that require communication between the performing entity and the patient following Patient Test Result Information Act ([place] Act 112) guidelines. Electronically signed by: Jim Monae M.D. 07/02/2023 7:41 AM
--- NOTE | 2023-07-02 08:32 | Discharge Summary ---
Date of Service July 02, 2023 Admission HPI Per Admitting Provider The patient is a 67-year-old gentleman with a history of ischemic cardiomyopathy. He presents for implantation of a dual-chamber ICD for primary prevention of sudden cardiac . Principal Diagnosis Cardiomyopathy Discharge Exam On the day of discharge the patient appeared to be feeling well. Normal respiratory effort Evaluation of the device implant site revealed only mild ecchymosis and dried blood. No drainage, significant erythema or swelling. No hematoma Discharge Data Allergies Allergy/AdvReac Type Severity Reaction Status Date / Time No Known Allergies Allergy Unknown Verified 06/02/23 10:30 Procedures Performed Operation Date: 07/01/23 08:00 Actual Procedures p ICD Insertion Single or Dual(Left) - Naren Pittman MD Ordered Studies 07/01/23 07:15 EP Lab Images for PACS ONCE Hospital Course (1) Ischemic cardiomyopathy: (2) Chronic CHF: Plan 1. Ischemic cardiomyopathy: On the day of admission the patient underwent implantation of a dual-chamber Medtronic ICD. No immediate complications. The following morning chest x-ray demonstrated stable lead position without pneumothorax. Device interrogation revealed normal function of both leads. The patient was feeling well and was discharged home. Total Time Total Time Spent Total Time Spent (In Minutes): 20 Discharge Plan Discharge Items Patient Disposition: Home - Self-Care Reason For Visit: ICD IMPLANT Discharge Diagnosis: Cardiomyopathy Activity: Resume your previous activity Lifting Comment: No lifting left arm above shoulder or behind neck for 6 weeks Bathing: Keep incision dry Bathing Comment: Keep wound dry and steri-strips intact until f/u next week Sexual Activity: When tolerated Exercise/Sports: Rest today Driving/Machine Use: Resume 1 day after discharge Non-emergency contact: Water Pump Installer Call non-emergency contact if: you have any medication questions, you have a fever, your wound has increased redness, your wound has increased drainage and your wound pain has increased Follow-up/Referrals: Rohit Parkinson DO [Primary Care Provider] - 07/12/23 2:00 pm (With Calista WATSON) Diet: Heart Healthy Addtl Attending Provider Instructions: None Pending Studies at Discharge: No Stand-Alone Forms: My [facility] Medical Management, Smoking Cessation Medications and DC Order Prescriptions: Continued furosemide 20 mg tablet 20 mg PO DAILY PRN (Reason: edema) Qty: 90 3RF metoprolol succinate 50 mg tablet extended release 24 hr 50 mg PO QAM Qty: 90 3RF terbinafine HCl 250 mg tablet 250 mg PO DAILY mesalamine 1.2 gram tablet,delayed release (DR/EC) 2 tab PO BID nitroglycerin 0.4 mg tablet, sublingual 0.4 mg sublingual Q5M PRN (Reason: chest pain) ferrous fumarate 325 mg (106 mg iron) tablet 325 mg PO DAILY aspirin [Adult Low Dose Aspirin] 81 mg tablet,delayed release (DR/EC) 81 mg PO DAILY naproxen sodium 220 mg tablet 220 mg PO BID PRN (Reason: Muscle Pain) Hold Instructions: Resume on 01/05/23. sildenafil 50 mg tablet 50 mg PO DAILY PRN (Reason: sexual activity) Qty: 30 3RF triamcinolone acetonide 0.1 % cream 1 applic topical DAILY Qty: 80 0RF Humira Pen Kahb-Aywrdj-Zltr HS 40 mg/0.8 mL pen injector kit 40 mg subcut Q14D Rx Instructions: start on day 29 of therapy Brilinta 90 mg tablet 90 mg PO BID Qty: 180 3RF Entresto 24-26 mg tablet 1 tab PO BID Qty: 180 3RF Jardiance 10 mg tablet 10 mg PO DAILY Qty: 90 3RF atorvastatin 40 mg tablet 40 mg PO QAM Qty: 90 3RF Discharge Orders: Discharge Order (Routine); Ordered 07/02/23 Ordered By: Naren Pittman Admission Data Admit Date/Time: 07/01/23 09:07 Attending Provider: Naren Pittman Admit Provider: Naren Pittman Primary Care Provider: Rohit Parkinson Other Interventions: Discharge Summary Assessment (RN) Last Done: 07/02/23 09:55 Coding Level of Care Code 37899 IN/OBS DISCH 30 MIN/LESS Diagnoses Ischemic cardiomyopathy I25.5 Chronic CHF I50.9
[2023-07-02] MEDS: FERROUS SULFATE 325 MG TAB PO SCH (08:48)
[2023-07-02] MEDS: ATORVASTATIN 40 MG TAB PO SCH (08:48)
[2023-07-02] MEDS: terbinafine HCL 250 MG TAB PO SCH (08:48)
[2023-07-02] MEDS: METOPROLOL SUCC 50MG EXT REL TAB PO SCH (08:48)
[2023-07-02] MEDS: EMPAGLIFLOZIN 10 MG TAB PO SCH (08:49)
[2023-07-02] MEDS: ASPIRIN 81 MG ECTAB PO SCH (08:49)
== END 2023-07-02 14:20 | disposition home or self-care (01) | DRG 277 ==
LOC: EP 06:46 → OBSVTOIN 09:07 → INTOOBSV 09:07 → 2S 09:07
PROC: EPB.ICD (2023-07-01 08:00)

== ENCOUNTER 2025-01-12 09:06 | Observation (INO) ==
--- NOTE | 2024-12-22 08:55 | PAT Medication Instructions ---
Medication Instructions Date of Service December 22, 2024 Home Medications Medication Instructions Recorded furosemide 20 mg tablet 20 mg PO DAILY PRN edema #90 tabs 06/23/23 nitroglycerin 0.4 mg sublingual 0.4 mg sublingual Q5M PRN chest 08/13/23 tablet pain #30 tabs atorvastatin 40 mg tablet 40 mg PO QAM #90 tabs 03/22/24 sacubitril 24 mg-valsartan 26 mg 1 tab PO BID #180 tabs 03/22/24 tablet (Entresto) metoprolol succinate 50 mg 50 mg PO QAM #90 tabs 07/19/24 tablet,extended release 24 hr aspirin 81 mg tablet,delayed release (Adult Low Dose Aspirin) 81 mg PO QAM ferrous fumarate 325 mg (106 mg iron) tablet 325 mg PO QAM naproxen sodium 220 mg tablet 220 mg PO BID PRN Muscle Pain adalimumab 40 mg/0.8 mL subcutaneous pen kit (Humira Pen Jkoxdxaxl-Ynujjmm-Jqex Hid Sup Start) 40 mg subcut Q14D furosemide 20 mg tablet 20 mg PO DAILY PRN edema nitroglycerin 0.4 mg sublingual tablet 0.4 mg sublingual Q5M PRN chest pain atorvastatin 40 mg tablet 40 mg PO QAM sacubitril 24 mg-valsartan 26 mg tablet (Entresto) 1 tab PO BID metoprolol succinate 50 mg tablet,extended release 24 hr 50 mg PO QAM empagliflozin 10 mg tablet (Jardiance) 10 mg PO QAM Continue as directed nitroglycerin 0.4 mg sublingual tablet 0.4 mg sublingual Q5M PRN chest pain (if needed) ASK your surgeon for instructions naproxen sodium 220 mg tablet 220 mg PO BID PRN Muscle Pain ASK your prescriber and surgeon aspirin 81 mg tablet,delayed release (Adult Low Dose Aspirin) 81 mg PO QAM adalimumab 40 mg/0.8 mL subcutaneous pen kit (Humira Pen Tzlhgnigb-Duexbbz-Aust Hid Sup Start) 40 mg subcut Q14D sacubitril 24 mg-valsartan 26 mg tablet (Entresto) 1 tab PO BID STOP taking 3 days before surgery empagliflozin 10 mg tablet (Jardiance) 10 mg PO QAM DO NOT take the morning of surgery ferrous fumarate 325 mg (106 mg iron) tablet 325 mg PO QAM furosemide 20 mg tablet 20 mg PO DAILY PRN edema Take morning of surgery With a small sip of water, OTHERWISE NOTHING TO EAT OR DRINK AFTER MIDNIGHT: atorvastatin 40 mg tablet 40 mg PO QAM metoprolol succinate 50 mg tablet,extended release 24 hr 50 mg PO QAM Take evening before surgery furosemide 20 mg tablet 20 mg PO DAILY PRN edema (if needed) Other Notes If you have any questions please call us at [phone] or [phone] or [phone] or [phone]
--- NOTE | 2024-12-28 11:22 | Anesthesiology Consultation ---
Date of Service December 28, 2024 Assessment & Plan (1) Encounter for pre-operative examination: - Check BSG DOS - Infectious disease screening: Per assessment on 12/28/24- No known recent infectious disease contacts or current infectious disease symptoms. - Outpatient joint assessment: Pt currently scheduled for inpatient pathway. If surgeon requests review for outpatient joint pathway, patient is not recommended candidate for outpatient joint program from anesthesia standpoint based on available information. - EP visit (12/04/24): "Ischemic cardiomyopathy: He seems well compensated. No overt symptoms of heart failure. Lung examination clear. I will continue on his current medical regimen which includes Jardiance, Lasix, metoprolol and Entresto.. Coronary disease: No symptoms of angina or coronary insufficiency. Continue aggressive secondary prevention with aspirin and atorvastatin.. Normally functioning dual-chamber ICD. No events. Normal longevity. Normal lead function. Mostly atrial pacing. No significant ventricular pacing. No concerning arrhythmias.. Follow Up: 6 Months.." Chart Review Chart Review: Acceptable Risk for Surgery and Patient seen in Pre Admission Testing Teaching & Discussion Pre-Anesthesia Teaching/Discussion Notes: Instructed NPO after midnight before surgery,except medications with 15 cc of water. Medication instructions provided according to the PAT guidelines. History Surgery Operation Date: 01/12/25 12:00 Proposed Procedures p Right Anterior Total Hip Arthroplasty - Anival Restrepo DO Height/Weight Height: 6 ft 1 in Weight: 100.7 kg Allergies Allergy/AdvReac Type Severity Reaction Status Date / Time No Known Allergies Allergy Unknown Verified 12/21/24 11:18 Medications Home Medications Medication Instructions Recorded Confirmed Last Taken aspirin 81 mg tablet,delayed 81 mg PO QAM 08/06/22 12/21/24 07/01/23 release (Adult Low Dose Aspirin) ferrous fumarate 325 mg (106 mg 325 mg PO QAM 08/06/22 12/21/24 07/01/23 iron) tablet naproxen sodium 220 mg tablet 220 mg PO BID PRN Muscle Pain 08/06/22 12/21/24 07/01/23 adalimumab 40 mg/0.8 mL 40 mg subcut Q14D 10/14/22 12/21/24 Unknown subcutaneous pen kit (Humira Pen Eeyizdvtb-Xlapdab-Mxhi Hid Sup Start) furosemide 20 mg tablet 20 mg PO DAILY PRN edema #90 tabs 06/23/23 12/21/24 06/30/23 nitroglycerin 0.4 mg sublingual 0.4 mg sublingual Q5M PRN chest 08/13/23 12/21/24 Unknown tablet pain #30 tabs atorvastatin 40 mg tablet 40 mg PO QAM #90 tabs 03/22/24 12/21/24 Unknown sacubitril 24 mg-valsartan 26 mg 1 tab PO BID #180 tabs 03/22/24 12/21/24 Unknown tablet (Entresto) metoprolol succinate 50 mg 50 mg PO QAM #90 tabs 07/19/24 12/21/24 Unknown tablet,extended release 24 hr empagliflozin 10 mg tablet 10 mg PO QAM 12/21/24 12/21/24 Unknown (Jardiance) Past Medical History Medical History Benign essential hypertension Per records Cardiomyopathy, nonischemic Per records Chronic CHF Crohn's disease Taking Humira Diabetes mellitus, type 2 NIDDM History of BPH Hx of coronary artery disease 2022- stent x1 Hx of hyperlipidemia Hx of iron deficiency anemia Hx of myocardial infarction 1998 ICD (implantable cardioverter-defibrillator) in place Follows with [facility] cardio Peripheral edema Occasional Exercise / Class Metabolic Activity III < 4 Walking/Shop/Light housework Past Family History Family History Mother Breast cancer Colorectal cancer Myocardial infarction Stroke Father Diabetes Myocardial infarction Denies family history of Ovarian cancer Prostate cancer Lung cancer Hypertension Past Surgical History Surgical History History of implantable cardioverter-defibrillator (ICD) placement (2022) [facility] History of total left knee replacement Hx of colonoscopy Status post cardiac catheterization 1989- no stents 2022- stent x1 Stented coronary artery OM1 12/2022 Past Anesthesia History No Hx of Anesthesia Complications and No Family Hx of Anesthesia Complications History of PONV No Hx of PONV and No Hx of Motion Sickness Social History Smoking Status: Former smoker tobacco type: e-cigarettes (Current vapes (nicotine)- daily) Do You Dip or Chew Tobacco: No Smoking End Date: Quit cigarette use Hx Alcohol Use: Yes Alcohol type: hard liquor alcohol intake frequency: a few times a week Hx Substance Use: No substance use type: does not use Review of Systems Patient denies chest pain, shortness of breath, fever, chills, cough, wheezing, palpitations. Physical Exam Vital Signs BP 108/69 P 66 TEMP 97.6 SP02 96%RA RESP 18 Physical Significantly decreased cervical extension range of motion. Full TMJ range of motion. TMD 3 finger breaths Mallampati Score II Dentition: upper full plate Lungs: clear throughout to auscultation Cardiac: regular rate and rhythm, no murmurs noted Spine: normal Carotid arteries: negative bruit Extremities: no LE edema Lab Results Anesthesia Preop Results Results Anesthesia Widget: WBC 5.09 K/ul (4.8-10.8) 12/28/24 Hgb 16.6 g/dl (14.0-18.0) 12/28/24 Hct 50.9 % (42.0-52.0) 12/28/24 Plt 187 K/uL (130-400) 12/28/24 Na 136 mmol/L (136-145) 12/28/24 K 4.7 mmol/L (3.5-5.1) 12/28/24 Cl 100 mmol/L (98-107) 12/28/24 CO2 32 mmol/L (21-32) 12/28/24 BUN 17 mg/dl (6-23) 12/28/24 Creat 0.85 mg/dl (0.6-1.4) 12/28/24 Glucose Level 91 mg/dl (70-99(Fasting)) 12/28/24 PT 10.3 Seconds (9.0-12.0) 12/28/24 PTT 25 Seconds (21-31) 12/28/24 INR 0.9 (0.9-1.1) 12/28/24 HA1c 6.4 % (4.5-5.6) H 12/28/24 Blood Type B Positive 12/28/24 Antibody Screen NEGATIVE 12/28/24 Testing Electrocardiogram Date: 12/28/24 Atrial-paced rhythm with prolonged AV conduction. 84bpm. LAD. LVH with QRS widening and repolarization abnormality (R in aVL, Rakesh product). Compared to 10/04/2023, RBBB no longer present and criteria for anteroseptal infarct are no longer present per taker off hemp fiber comparison. Chest X-Ray Date: 12/28/24 FINDINGS: Stable pacemaker. Heart size and pulmonary vasculature are normal. No consolidation or pleural effusion. IMPRESSION: No acute findings. Echocardiogram Date: 05/13/23 EF 25-30%. Moderate to severe global hypokinesis of the left ventricle. Anteroseptal and apical wall akinesis. No thrombus. Mild LAD. Mild RAD. Moderate LVD with severe LV systolic dysfunction and wall motion abnormalities consistent with prior LAD territory [place]. No significant valvular pathology. No significant change compared to prior study 12/04/2022 per report. Cardiac Catheterization Date: 12/24/22 Coronary Anatomy Dominant: Right Left Main (% Stenosis): Normal LAD (% Stenosis): Proximal (Mild) and Mid (Mild) D1 (% Stenosis): Normal D2 (% Stenosis): Normal Circumflex (% Stenosis): Normal OM1 (% Stenosis): Proximal (Mild diffuse and 99% focal) RCA (% Stenosis): Proximal (Diffuse mild less than 40%), Mid (Diffuse mild) and Distal (Scattered mild) R PDA (% Stenosis): Normal R PL1 (% Stenosis): Normal Left Ventricular Angiography EF (%): 30 to 35% Wall Motion: Anterior (Hypokinetic) and Apical (Hypokinetic) Mitral Regurgitation: 1+ Recommendations: Medical Therapy and/or Counseling and PCI without planned CABG Other Testing ICD check Date: 12/04/24 Medtronic. Mode AAIR <=> DDDR.Battery longevity 8.7 years. [facility] [place] EP visit 12/04/24: "Normally functioning dual-chamber ICD. No events. Normal longevity. Normal lead function. Mostly atrial pacing. No significant ventricular pacing. No concerning arrhythmias."
[~2025-01-12 09:06] MED LIST changes: -ASPEC325 PO; +BUPIVACAINE 0.5 % 5 MG/1 ML PF 10ML VIAL ONE; -METO25TA56 PO; -NAPR1TAB9 PO; +ROPIVACAINE 0.5% 5 MG/ML 30 ML VIAL ONE; -SIMV40TA4 PO
[2025-01-12] MEDS ORDERED: ONDANSETRON INJ 2 MG/ML 2 ML VIAL ONE (09:24)
[2025-01-12] MEDS ORDERED: MIDAZOLAM HCL 1 MG/ML 2ML VIAL ONE (09:24)
[2025-01-12] MEDS ORDERED: PROPOFOL IV EMULSION 10 MG/ML 20 ML VIAL IV ONE (09:24)
[2025-01-12] MEDS: dexAMETHasone**PF** 10 MG/ML VIAL IV SCH (09:44)
[2025-01-12] MEDS: ACETAMINOPHEN 500 MG TAB PO SCH ×2 (09:45→14:49)
[2025-01-12] MEDS: LR 60ML/HR IV SCH (09:45)
[2025-01-12] MEDS: LR 500ML BOLUS, THEN 15ML/HR IV SCH (09:45)
[2025-01-12] MEDS: FAMOTIDINE 20 MG TAB PO SCH (09:45)
[2025-01-12] MEDS: GABAPENTIN 300 MG CAP PO SCH (09:45)
--- NOTE | 2025-01-12 09:52 | History & Physical Bridge Note ---
Date of Service January 12, 2025 History & Physical Bridge Note I have examined the patient, reviewed the History & Physical and in the interval since the performance of the History & Physical I have noted the following changes of clinical significance: no changes noted
[2025-01-12] MEDS ORDERED: ATROPINE SULFATE 0.1 MG/ML 10ML SYR IV PRN (10:32)
[2025-01-12] MEDS ORDERED: ONDANSETRON INJ 2 MG/ML 2 ML VIAL IV PRN ×2 (10:32→14:10)
[2025-01-12] MEDS: TRANEXAMIC ACID 1,000 MG **IV Pre-op IV SCH (10:45)
[2025-01-12] MEDS: ORTHO JOINT ANESTHETIC ONE (11:27)
[2025-01-12] MEDS ORDERED: PHENYLEPHRINE 100MCG/ML 5ML SYR ONE ×2 (11:41→12:13)
[2025-01-12] MEDS: ROPIV 0.5% 246mg, Ketorolac 30mg, EPINEPHrine 0.5mg in NSS INFIL SCH (11:54)
--- NOTE | 2025-01-12 11:56 | Operative Report ---
PG Post Operative Report Pre & Post Diagnosis Operation Date: 01/12/25 11:00 Pre-Op Diagnosis: Osteoarthritis of Right Hip Post-Op Diagnosis: Osteoarthritis of Right Hip I identified the patient and participated in the time-out.: Yes Procedure Operation Date: 01/12/25 11:00 Actual Procedures p Right Anterior Total Hip Arthroplasty(Right) - Anival Restrepo DO Surgeon Anival Restrepo DO Used [employer] Lalo Damon PA-C Estimated Blood Loss 300 Findings Consistent with Post-Op Diagnosis Specimens Right femoral head Description of Procedure Implants used I used a [employer] total hip arthroplasty system with a size 5 high offset Z1 stem, a 58 mm G7 cup with a 25mm screw, an E1 polyethylene liner, a 40 mm ceramic head with a +3.5 neck. Pawel arrived at the hospital for the above procedure. He was seen in the preoperative holding area and the operative extremity was identified and signed. He was given a spinal anesthetic, a preoperative antibiotic, and TXA. He was then taken back to the operating room and laid on the table in the supine position. He was given basic sedation. The operative leg was secured to a Puristst leg positioner. The hip was then prepped and draped in sterile fashion. A timeout was done and the patient and the operative extremity was properly identified. An anterior approach was used. Dissection was taken down through the fascia and the tensor muscle belly was retracted laterally and the rectus was retracted medially. The circumflex vessels were identified and ligated. The capsule was then incised and tagged for later repair. The femoral neck was then cut and the femoral head was removed. The acetabulum was exposed. Time was spent doing a complete circumferential labral release. Sequential reaming of the acetabulum up to a size 57 reamer was done. Final reamings were done under fluoroscopy to ensure appropriate version. A Biomet 58 mm G7 cup was then impacted into place. A single 25 mm screw was placed. The E1 polyethylene liner was then snapped into place. Surrounding soft tissues were then injected with 100 cc of an orthopedic pain control cocktail. The proximal femur was then exposed. Sequential broaching up to a size 5 broach was done. Off that broach a size 40 head with a +3.5 neck was trialed. The hip was reduced and fluoroscopic images showed anatomic alignment of the implants in acceptable length. The broach was removed. The final size 5 high offset Z1 stem was then impacted into place. A ceramic 40 mm head with a +3.5 neck was then impacted onto the stem and the hip was reduced. Final fluoroscopic images showed anatomic alignment of the hip. The capsule was then closed with #1 Vicryl suture. A dilute betadyne lavage was then done for 3 minutes. The joint was then irrigated with normal saline solution. The fascia was closed with #1 PDS suture. Skin was closed with 2-0 Vicryl, Sergey zip line, and a Silverlon dressing. He was then transferred to a hospital bed and taken to the post anesthesia care unit in stable condition. He tolerated the procedure well. Lalo Damon PA-C, was present for the entire procedure. He was critical for patient positioning, prepping, draping, retraction exposure, wound closure and application of sterile dressing. I attest to the content of the Intraoperative Record and any orders documented therein. Any exceptions are noted below.
[2025-01-12] MEDS ORDERED: ePHEDrine sulfate 50 MG/5 ML SYR ONE (12:05)
--- NOTE | 2025-01-12 13:08 | XRay Report ---
XR hip 1V RT w pelvis CLINICAL HISTORY: IN PACU - Post Surgical COMPARISON: None FINDINGS: Right hip prosthesis shows no hardware complication. There is expected soft tissue mass. T here are severe degenerative changes of the left hip. IMPRESSION: Unremarkable postoperative exam. ACT 112: Negative or not required by law. Electronically signed by: Gera Rosa M.D. 01/12/2025 1:06 PM
--- NOTE | 2025-01-12 13:44 | Anesthesiology Progress Note ---
Date of Service January 12, 2025 Anesthesia Post Procedure Vital Signs Vital Signs: Temp Pulse Pulse Resp BP Pulse Ox O2 Del Method 01/12/25 13:40 97.3 F L 61 14 138/67 100 Nasal Cannula 01/12/25 13:30 61 18 127/62 99 Nasal Cannula 01/12/25 13:20 62 22 137/60 98 Nasal Cannula 01/12/25 13:10 62 18 134/65 98 Nasal Cannula 01/12/25 13:00 61 22 132/63 98 Nasal Cannula 01/12/25 12:50 66 19 135/65 100 Nasal Cannula 01/12/25 12:40 62 19 121/59 L 100 Oxymask 01/12/25 12:30 65 23 127/55 L 98 Oxymask 01/12/25 12:21 96.8 F L 70 17 107/50 L 97 Oxymask 01/12/25 09:25 97.9 F 68 18 178/82 H 95 Room Air O2 Flow Rate 01/12/25 13:40 2 01/12/25 13:30 2 01/12/25 13:20 2 01/12/25 13:10 2 01/12/25 13:00 2 01/12/25 12:50 2 01/12/25 12:40 4 01/12/25 12:30 6 01/12/25 12:21 6 01/12/25 09:25 Transfer of Care Handoff Completed per policy Notes Mental Status: alert / awake / arousable and participated in evaluation Patient Amnestic to Procedure: Yes Nausea / Vomiting: adequately controlled Pain: adequately controlled Airway Patency, RR, SpO2: stable & adequate BP & HR: stable & adequate Hydration State: stable & adequate Neuraxial Anesthesia: was administered and sensory block is resolving Anesthetic Complications: no major complications apparent and Pt Satisfied with anesthetic care
[2025-01-12] MEDS ORDERED: MAGNESIUM HYDROXIDE SUSP 30 ML UDC PO PRN (14:10)
[2025-01-12] MEDS ORDERED: HYDROmorphone INJ 0.5 MG/0.5 ML SYR IV PRN (14:10)
[2025-01-12] MEDS ORDERED: FUROSEMIDE 20 MG TAB PO PRN (14:10)
[2025-01-12] MEDS ORDERED: NALOXONE HCL 0.4 MG/1 ML VIAL/CARP IV PRN (14:10)
[2025-01-12] MEDS ORDERED: METOCLOPRAMIDE HCL INJ 5 MG/ML 2 ML VIAL IV PRN (14:10)
--- NOTE | 2025-01-12 14:28 | Fluoroscopy Report ---
FL hip RT 1V CLINICAL HISTORY: RIGHT ANTERIOR HIP COMPARISON STUDY: None FLUOROSCOPY TIME: 7 seconds FLUOROSCOPY IMAGES: 1 EXPOSURE DOSE: 1.2 mGy FINDINGS: Fluoroscopy was provided for right hip prosthesis. IMPRESSION: Intraoperative fluoroscopy. ACT 112: Negative or not required by law. Electronically signed by: Gera Rosa M.D. 01/12/2025 2:27 PM
[2025-01-12] MEDS: KETOROLAC TROMETHAMINE 15 MG/ML VIAL IV SCH (14:49)
[2025-01-12] MEDS: SODIUM CHLORIDE 0.9% 1,000 ML IV SCH (14:49)
[2025-01-12] MEDS: VALSARTAN/SACUBITRIL 26/24MG TAB PO SCH (21:29)
[2025-01-12] MEDS: ASPIRIN 81 MG ECTAB PO SCH (21:29)
[2025-01-12] MEDS: DOCUSATE SODIUM 100 MG CAP PO SCH (21:32)
[2025-01-12] MEDS: SENNA 8.6 MG TAB PO SCH (21:34)
[2025-01-13 04:14] VITALS: O2SAT 93
[2025-01-13 07:10] VITALS: RESP 16
--- NOTE | 2025-01-13 07:13 | Orthopedic Progress Note ---
Date of Service January 13, 2025 Assessment & Plan (1) Status post right hip replacement: Overall he is doing very well. He is not having much pain in the right hip. He will be seen by physical therapy today for ambulation and range of motion exercises. He is on aspirin for DVT prophylaxis. He can be discharged to home later today. He will follow-up with orthopedics in 2 weeks. Nick Armas was seen and examined at bedside this morning. Overall he is doing very well. He is not having much pain in the right hip. He has been up and ambulating to the bathroom. He has no complaints.. Review of Systems All systems reviewed & are unremarkable except as noted in HPI & below. Physical Exam On physical exam of the right hip, the dressing is clean and dry. His leg is out in full extension. He has active dorsiflexion and plantarflexion of his right ankle.. Results & Data Results & Data Laboratory Results . Diagnostic Findings Postoperative x-rays of the right hip show the prosthesis to be in anatomic alignment without any evidence of fracture, dislocation, or loosening.. PG Care Time/CCT Total # of Minutes Spent Total Time Spent with Patient: Total time spent is greater than 50% in coordination of care (as documented) at patient's floor/unit and/or counseling patient: Coding Level of Care Code 61962 Post Operative Follow-Up Diagnoses Status post right hip replacement Z96.641
[2025-01-13] MEDS: EMPAGLIFLOZIN 10 MG TAB PO SCH (08:02)
[2025-01-13] MEDS: MULTIVITAMIN TAB PO SCH (08:03)
[2025-01-13] MEDS: ATORVASTATIN 40 MG TAB PO SCH (08:03)
[2025-01-13] MEDS: METOPROLOL SUCC 50MG EXT REL TAB PO SCH (08:03)
[2025-01-13 11:17] VITALS: BP 136/70; PULSE 62; TEMP 97.5
== END 2025-01-13 12:57 | disposition home or self-care (01) ==
LOC: 3N 09:06 → ASU 09:06